=== PATIENT | male | born 1950 | race Caucasian/White ===

== ENCOUNTER 2024-09-08 20:42 | Inpatient (IN) | payer MEDICARE, OTHER ==
--- NOTE | 2024-09-08 20:46 | ED ---
SOB HPI - General Stated Complaint: Shortness of Breath Time Seen by Provider: 09/08/24 20:45 Source: RN notes reviewed, old records reviewed Mode of arrival: EMS Limitations: no limitations - History of Present Illness Initial Comments: This is a 73-year-old male to the ER for evaluation patient coming in for hemoptysis transfer from outside facility for hemoptysis with CHF. Patient admits to coughing up blood he was also concern for vomiting both but also complaining of some shortness of breath and chest pain. Patient symptoms are improved here in the ER no current hemoptysis MD Complaint: shortness of breath, cough, chest pain -: hour(s) Severity: mild Severity scale (1-10): 2 Consistency: constant Improves With: nothing Known History Of: COPD, congestive heart failure Context: recent URI, anxiety, recent illness Associated Symptoms: denies other symptoms - Related Data Home Medications Medication Instructions Recorded Confirmed Albuterol Sulfate [Albuterol 2 puff INHALATION RT-Q4H PRN 09/09/24 09/09/24 Sulfate Hfa] Atorvastatin [Lipitor] 40 mg PO HS 09/09/24 09/09/24 Cholecalciferol (Vitamin D3) 100 mcg PO DAILY 09/09/24 09/09/24 [Vitamin D3 (50 Mcg = 2000 Iu)] Clopidogrel [Plavix] 75 mg PO DAILY 09/09/24 09/09/24 Ferrous Gluconate 324 mg PO BID 09/09/24 09/09/24 Furosemide [Lasix] 20 mg PO DAILY 09/09/24 09/09/24 Ipratropium-Albuterol Nebulize 3 ml INHALATION RT-BID 09/09/24 09/09/24 [Duoneb 0.5 mg-3 mg/3 ml Soln] Isosorbide Mononitrate ER [Imdur] 30 mg PO DAILY 09/09/24 09/09/24 Levothyroxine Sodium [Synthroid] 25 mcg PO AC-BRKFST 09/09/24 09/09/24 Meclizine [Antivert] 25 mg PO BID PRN 09/09/24 09/09/24 Melatonin 6 mg PO HS 09/09/24 09/09/24 Metoprolol Succinate (ER) [Toprol 25 mg PO HS 09/09/24 09/09/24 XL] Montelukast [Singulair] 10 mg PO HS 09/09/24 09/09/24 Multivitamins, Thera [Multivitamin 1 tab PO DAILY 09/09/24 09/09/24 (formulary)] Pantoprazole [Protonix] 40 mg PO DAILY 09/09/24 09/09/24 Potassium Chloride ER [K-Dur 10] 10 meq PO DAILY 09/09/24 09/09/24 Warfarin [Coumadin] 7.5 mg PO HS 09/09/24 09/09/24 glipiZIDE XL [Glucotrol XL] 5 mg PO DAILY 09/09/24 09/09/24 metFORMIN HCL [Glucophage] 1,000 mg PO BID 09/09/24 09/09/24 Previous Rx's Medication Instructions Recorded Benzonatate [Tessalon Perles] 200 mg PO TID PRN 5 Days #15 cap 09/12/24 Magnesium Oxide [Mag-Ox] 400 mg PO TID 30 Days #30 09/12/24 bisacodyL [Dulcolax] 10 mg RECTAL DAILY PRN #5 09/12/24 suppositor cefuroxime axetiL [Ceftin] 500 mg PO BID 7 Days #14 tab 09/12/24 Allergies Allergy/AdvReac Type Severity Reaction Status Date / Time Penicillins Allergy Rash/Hives Verified 09/09/24 09:03 Review of Systems ROS Statement: Those systems with pertinent positive or pertinent negative responses have been documented in the HPI. ROS Other: All systems not noted in ROS Statement are negative. General Exam General appearance: alert, in no apparent distress Head exam: Present: atraumatic, normocephalic, normal inspection Eye exam: Present: normal appearance, PERRL, EOMI. Absent: scleral icterus, conjunctival injection, periorbital swelling ENT exam: Present: normal exam, mucous membranes moist Neck exam: Present: normal inspection. Absent: tenderness, meningismus, lymphadenopathy Respiratory exam: Present: wheezes. Absent: respiratory distress, rales, rhonchi, stridor Cardiovascular Exam: Present: regular rate, normal rhythm, normal heart sounds. Absent: systolic murmur, diastolic murmur, rubs, gallop, clicks GI/Abdominal exam: Present: soft, normal bowel sounds. Absent: distended, tenderness, guarding, rebound, rigid Extremities exam: Present: normal inspection, full ROM, normal capillary refill. Absent: tenderness, pedal edema, joint swelling, calf tenderness Back exam: Present: normal inspection Neurological exam: Present: alert, oriented X3, CN II-XII intact Psychiatric exam: Present: normal affect, normal mood Skin exam: Present: warm, dry, intact, normal color. Absent: rash Course Vital Signs 09/08/24 09/08/24 09/08/24 20:46 21:20 21:40 Temperature 99.9 F H Pulse Rate 101 H 98 98 Respiratory 24 19 Rate Blood Pressure 145/78 139/76 O2 Sat by Pulse 95 94 L Oximetry 09/08/24 09/08/24 09/09/24 21:46 23:00 03:00 Temperature 98.3 F Pulse Rate 84 90 91 Respiratory 17 18 Rate Blood Pressure 114/63 117/79 O2 Sat by Pulse 98 96 Oximetry 09/09/24 09/09/24 09/09/24 06:00 08:13 08:23 Temperature Pulse Rate 89 94 92 Respiratory 18 Rate Blood Pressure 133/78 O2 Sat by Pulse 96 94 L Oximetry 09/09/24 09/09/24 09/09/24 11:52 12:03 12:05 Temperature Pulse Rate 86 80 89 Respiratory 18 Rate Blood Pressure 121/69 O2 Sat by Pulse 97 Oximetry 09/09/24 09/09/24 09/09/24 15:20 15:26 15:38 Temperature Pulse Rate 86 88 90 Respiratory 18 Rate Blood Pressure 134/70 O2 Sat by Pulse 100 Oximetry 09/09/24 09/09/24 09/09/24 18:29 19:32 19:51 Temperature 97.8 F Pulse Rate 91 96 83 Respiratory 18 18 Rate Blood Pressure 136/75 138/71 O2 Sat by Pulse 100 97 Oximetry 09/09/24 09/09/24 09/10/24 20:03 22:00 06:00 Temperature Pulse Rate 85 84 91 Respiratory 18 18 Rate Blood Pressure 110/64 124/70 O2 Sat by Pulse 98 97 Oximetry 09/10/24 09/10/24 09/10/24 08:49 09:00 11:37 Temperature Pulse Rate 90 90 85 Respiratory 16 16 16 Rate Blood Pressure 106/62 O2 Sat by Pulse 99 96 Oximetry 09/10/24 09/10/24 09/10/24 12:00 13:05 17:02 Temperature Pulse Rate 88 94 95 Respiratory 18 18 20 Rate Blood Pressure 114/64 110/61 100/66 O2 Sat by Pulse 95 97 95 Oximetry 09/10/24 09/10/24 09/10/24 18:00 19:59 20:08 Temperature Pulse Rate 90 105 H 99 Respiratory 20 20 20 Rate Blood Pressure 101/60 O2 Sat by Pulse 97 Oximetry 09/10/24 20:45 Temperature Pulse Rate 105 H Respiratory 20 Rate Blood Pressure 119/76 O2 Sat by Pulse 97 Oximetry - Reevaluation(s) Reevaluation #1: 09/08/24 22:51 Medical records reviewed Reevaluation #2: 09/08/24 22:51 Patient is relatively asymptomatic here in the ER mild headache Reevaluation #3: 09/08/24 22:52 Patient informed of results questions answered Reevaluation #4: Was pt. sent in by a medical professional or institution (, PA, OFFICE SERVICES ASSOCIATE, urgent care, hospital, or [facility]...) When possible be specific @ -no Did you speak to anyone other than the patient for history (EMS, parent, family, police, friend...)? What history was obtained from this source @ -no Did you review nursing and triage notes (agree or disagree)? Why? @ -agree Are old charts reviewed (outside hosp., previous admission, EMS record, old EKG, old radiological studies, urgent care reports/EKG's, [facility] records)? Report findings @ -yes Differential Diagnosis (chest pain, altered mental status, abdominal pain women, abdominal pain men, vaginal bleeding, weakness, fever, dyspnea, syncope, headache, dizziness, GI bleed, back pain, seizure, CVA, palpatations, mental health, musculoskeletal)? @ -prior EKG interpreted by me (3pts min.). @ -yes X-rays interpreted by me (1pt min.). @ -yes negative for acute disease CT interpreted by me (1pt min.). @ -no U/S interpreted by me (1pt. min.). @ -no What testing was considered but not performed or refused? (CT, X-rays, U/S, labs)? Why? @ -none What meds were considered but not given or refused? Why? @ -none Did you discuss the management of the patient with other professionals (professionals i.e. , PA, OFFICE SERVICES ASSOCIATE, lab, RT, psych nurse, socially responsible investment adviser, yard brakeman, teacher, grant officer, vocational case manager)? Give summary @ -no Was smoking cessation discussed for >3mins.? @ -no Was critical care preformed (if so, how long)? @ -no Were there social determinants of health that impacted care today? How? (Homelessness, low income, unemployed, alcoholism, drug addiction, transportation, low edu. Level, literacy, decrease access to med. care, [facility], rehab)? @ -none Was there de-escalation of care discussed even if they declined (Discuss DNR or withdrawal of care, Hospice)? DNR status @ -no What co-morbidities impacted this encounter? (DM, HTN, Smoking, COPD, CAD, Cancer, CVA, ARF, Chemo, Hep., AIDS, mental health diagnosis, sleep apnea, morbid obesity)? @ -none Was patient admitted / discharged? Hospital course, mention meds given and route, prescriptions, significant lab abnormalities, going to OR and other pertinent info. @ - 73 male will be admitted for cough hemoptysis COPD and CHF with pneumonia Admitted Undiagnosed new problem with uncertain prognosis? @ -no Drug Therapy requiring intensive monitoring for toxicity (Heparin, Nitro, Insulin, Cardizem)? @ -no Were any procedures done? @ -no Diagnosis/symptom? @ -COPD CHF pneumonia Acute, or Chronic, or Acute on Chronic? @ -Acute Uncomplicated (without systemic symptoms) or Complicated (systemic symptoms)? @ -Complicated Side effects of treatment? @ -no Exacerbation, Progression, or Severe Exacerbation? @ -exacerbation Poses a threat to life or bodily function? How? (Chest pain, [place], [place], pneumonia, PE, COPD, DKA, ARF, appy, cholecystitis, CVA, Diverticulitis, Homicidal, Suicidal, threat to staff... and all critical care pts) @ -yes extremes of age respiratory disease Reevaluation #5: Differential Dyspnea: Coronary syndrome, arrhythmia, tamponade, asthma, COPD, pulmonary embolism, pneumonia, pneumothorax, pulmonary effusion, anaphylaxis, diabetic ketoacidosis, flailed chest, pulmonary contusion, diaphragmatic rupture, anemia, neuromuscular, this is not meant to be an all-inclusive list. - Consultations Consultation #1: Spoke with [facility] who agrees to admit this patient Medical Decision Making - Medical Decision Making 73 male will be admitted for cough hemoptysis COPD and CHF with pneumonia - Lab Data Result diagrams: 09/12/24 04:04 09/12/24 04:04 Lab Results 09/08/24 09/08/24 09/08/24 Range/Units 21:00 21:00 21:00 WBC 7.97 (4.50-10.00) 10*3/uL RBC 3.60 L (4.40-5.60) 10*6/uL Hgb 10.7 L (13.0-17.0) g/dL Hct 32.8 L (39.6-50.0) % MCV 91.1 (80.0-97.0) fL MCH 29.7 (27.0-32.0) pg MCHC 32.6 (32.0-37.0) g/dL Plt Count 277 (140-440) 10*3/uL MPV 9.4 L (9.5-12.2) fL Immature Gran % (Auto) 0.4 % Neutrophils % 90.3 % Lymphocytes % 3.0 % Monocytes % 5.9 % Eosinophils % 0.0 % Basophils % 0.4 % Immature Gran # 0.03 (0.00-0.04) 10*3/uL Neutrophils # 7.20 (1.80-7.70) 10*3/uL Lymphocytes # 0.24 L (0.90-5.00) 10*3/uL Monocytes # 0.47 (0.20-1.00) 10*3/uL Eosinophils # 0.00 L (0.04-0.35) 10*3/uL Basophils # 0.03 (0.00-0.10) 10*3/uL PT 21.3 H (10.0-12.5) sec INR 2.1 H (<1.2) APTT 29.5 (22.0-30.0) sec Sodium 139 (137-145) mmol/L Potassium 3.8 (3.5-5.1) mmol/L Chloride 96 L (98-107) mmol/L Carbon Dioxide 32 H (22-30) mmol/L Anion Gap 11 mmol/L BUN 36 H (9-20) mg/dL Creatinine 0.68 (0.66-1.25) mg/dL Est GFR (CKD-EPI)AfAm >90 (>60 ml/min/1.73 sqM) Est GFR (CKD-EPI)NonAf >90 (>60 ml/min/1.73 sqM) Glucose 121 H (74-99) mg/dL Plasma Lactic Acid Srinivas (0.7-2.0) mmol/L Calcium 9.2 (8.4-10.2) mg/dL Magnesium 1.5 L (1.6-2.3) mg/dL Total Bilirubin 1.2 (0.2-1.3) mg/dL AST 36 (17-59) U/L ALT 30 (4-49) U/L Alkaline Phosphatase 55 (38-126) U/L Troponin I (0.000-0.034) ng/mL NT-Pro-B Natriuret Pep 2320 pg/mL Total Protein 7.0 (6.3-8.2) g/dL Albumin 4.0 (3.5-5.0) g/dL 09/08/24 09/08/24 Range/Units 21:00 21:00 WBC (4.50-10.00) 10*3/uL RBC (4.40-5.60) 10*6/uL Hgb (13.0-17.0) g/dL Hct (39.6-50.0) % MCV (80.0-97.0) fL MCH (27.0-32.0) pg MCHC (32.0-37.0) g/dL Plt Count (140-440) 10*3/uL MPV (9.5-12.2) fL Immature Gran % (Auto) % Neutrophils % % Lymphocytes % % Monocytes % % Eosinophils % % Basophils % % Immature Gran # (0.00-0.04) 10*3/uL Neutrophils # (1.80-7.70) 10*3/uL Lymphocytes # (0.90-5.00) 10*3/uL Monocytes # (0.20-1.00) 10*3/uL Eosinophils # (0.04-0.35) 10*3/uL Basophils # (0.00-0.10) 10*3/uL PT (10.0-12.5) sec INR (<1.2) APTT (22.0-30.0) sec Sodium (137-145) mmol/L Potassium (3.5-5.1) mmol/L Chloride (98-107) mmol/L Carbon Dioxide (22-30) mmol/L Anion Gap mmol/L BUN (9-20) mg/dL Creatinine (0.66-1.25) mg/dL Est GFR (CKD-EPI)AfAm (>60 ml/min/1.73 sqM) Est GFR (CKD-EPI)NonAf (>60 ml/min/1.73 sqM) Glucose (74-99) mg/dL Plasma Lactic Acid Srinivas 1.4 (0.7-2.0) mmol/L Calcium (8.4-10.2) mg/dL Magnesium (1.6-2.3) mg/dL Total Bilirubin (0.2-1.3) mg/dL AST (17-59) U/L ALT (4-49) U/L Alkaline Phosphatase (38-126) U/L Troponin I 0.026 (0.000-0.034) ng/mL NT-Pro-B Natriuret Pep pg/mL Total Protein (6.3-8.2) g/dL Albumin (3.5-5.0) g/dL - EKG Data -: EKG Interpreted by Me (EKG is sinus 98 IN 117 QRS 87 QTc 397) - Radiology Data Radiology results: report reviewed (Chest x-ray positive for effusion with pneumonia), image reviewed Disposition Clinical Impression: Acute exacerbation of chronic obstructive pulmonary disease, Community acquired pneumonia, Acute pulmonary edema, Congestive heart failure, Hemoptysis Disposition: ADMITTED IP TO THIS HOSP Condition: Serious Is patient prescribed a controlled substance at d/c from ED?: No Time of Disposition: 22:10
[2024-09-08 21:13] LABS: Basophils # (A) 0.03 10*3/uL (0.00-0.10); Basophils % (A) 0.4 %; Eosinophils # (A) 0.00 10*3/uL (0.04-0.35); Eosinophils % (A) 0.0 %; HCT 32.8 % (39.6-50.0); HGB 10.7 g/dL (13.0-17.0); Lymphocytes # (A) 0.24 10*3/uL (0.90-5.00); Lymphocytes % (A) 3.0 %; MCH 29.7 pg (27.0-32.0); MCHC 32.6 g/dL (32.0-37.0); MCV 91.1 fL (80.0-97.0); Monocytes # (A) 0.47 10*3/uL (0.20-1.00); Monocytes % (A) 5.9 %; Neutrophils # (A) 7.20 10*3/uL (1.80-7.70); Neutrophils % (A) 90.3 %; Platelet Count 277 10*3/uL (140-440); RBC 3.60 10*6/uL (4.40-5.60); RDW 14.8 % (11.5-14.5); WBC 7.97 10*3/uL (4.50-10.00)
[2024-09-08 21:21] LABS: INR 2.1 (<1.2); Partial Thromboplastin Time 29.5 sec (22.0-30.0); Prothrombin Time 21.3 sec (10.0-12.5)
[2024-09-08 21:23] LABS: ALT 30 U/L (4-49); AST 36 U/L (17-59); African American GFR (CKD) >90 (>60 ml/min/1.73 sqM); Albumin 4.0 g/dL (3.5-5.0); Alkaline Phosphatase 55 U/L (38-126); Anion Gap 11 mmol/L; Blood Urea Nitrogen 36 mg/dL (9-20); Calcium 9.2 mg/dL (8.4-10.2); Carbon Dioxide 32 mmol/L (22-30); Chloride 96 mmol/L (98-107); Glucose 121 mg/dL (74-99); Magnesium 1.5 mg/dL (1.6-2.3); Non-African American GFR(CKD) >90 (>60 ml/min/1.73 sqM); Potassium 3.8 mmol/L (3.5-5.1); Sodium 139 mmol/L (137-145); Total Protein 7.0 g/dL (6.3-8.2)
[2024-09-08 21:31] LABS: NT-Pro-B-Type Natriuretic Pept 2320 pg/mL
--- NOTE | 2024-09-08 21:34 | XR ---
EXAMINATION TYPE: XR chest 1V portable DATE OF EXAM: 09/08/2024 9:29 PM COMPARISON: 09/08/2024 CLINICAL INDICATION: Male, 73 years old with history of sob, TECHNIQUE: XR chest 1V portable views of the chest are obtained. FINDINGS: Demonstrated are scattered senescent parenchymal change. Basilar airspace consolidation right greater than left with basilar pleural effusions. The heart is stable. Hilar and mediastinal structures are within normal limits. Degenerative changes are seen of the dorsal spine. IMPRESSION: 1. Basilar airspace consolidation right greater than left with basilar pleural effusions. Correlate for pneumonia or aspiration pneumonia. [facility], , 09/08/2024 9:31 PM
[2024-09-08] MEDS: IPRATROPIUM-ALBUTEROL 3 ML NEB INHALATION STA (21:38)
[2024-09-08] MEDS ORDERED: PNEUMONIA PROTOCOL UTILIZED 1 EACH MISC PO PRN (22:07)
[2024-09-08] MEDS: MAGNESIUM OXIDE 400 MG TAB PO STA (22:21)
[2024-09-08] MEDS: MORPHINE SULFATE 4 MG/ML SYRINGE IVP STA (22:22)
[2024-09-08] MEDS: MAGNESIUM SULFATE-D5W PMX 1 GM in DEXTROSE/WATER 1 100ML.BAG IVPB SCH (22:26)
[2024-09-08] MEDS: AZITHROMYCIN 500 MG in SODIUM CHLORIDE 0.9% 250 ML IVPB STA (23:12)
[2024-09-09 00:06] LABS: RSV Not Detected (Not Detectd)
--- NOTE | 2024-09-09 05:17 | P.CNPUL ---
History of Present Illness Consult date: 09/09/24 Requesting physician: Adriel Wright Reason for consult: COPD Chief complaint: Vomiting and shortness of breath History of present illness: Patient is a 73-year-old male with past medical history significant for coronary artery disease with previous three-vessel CABG and subsequent PCI/stents, diabetes mellitus, hypertension, hyperlipidemia, hypothyroidism, atrial fibrillation anticoagulated on Coumadin. Additionally, reports history of throat abscess and prolonged stay on the mechanical ventilator with tracheostomy and PEG tube at [facility]. These were reversed approximately 1 year ago. Endorses ongoing issues with dysphagia and aspiration. Brought into the emergency department late last night by EMS. Workup including chest x-ray showing bibasilar dense consolidations right greater than left with basilar pleural effusions. Prior sternotomy wires noted. Labs including a CBC with a WBC count of 7.97, hemoglobin 10.7 g/dL, platelets 277. CMP: Sodium 139, potassium 3.8, chloride 96, serum bicarb 32, BUN 36, creatinine 0.68, glucose 121. Lactic 1.4. Troponin 0.026. NT proBNP 2320. Viral 4 Plex negative for influenza A/B, RSV, COVID. Patient currently being evaluated in the emergency department. He is on 6 L nasal cannula. Resting fairly comfortably in bed. Able to carry out full conversation. He states that his difficulty in breathing started after an episode of vomiting. He feels he may have aspirated. Subsequently, coughing and small amounts of hemoptysis mixed with sputum. Denies any fevers or chills while at home. Did have a mild temperature of 99.9 F on arrival. Denies any further episodes of nausea or vomiting. Denies any hematemesis. Denies any abdominal pain. States his last normal bowel movement was yesterday. Although, reports ongoing issues with constipation. Denies any diarrhea, melena, hematochezia. Denies any chest pain. Denies any lower extremity swelling. No prior echocardiogram available for review. He is empirically covered on antibiotics. Review of Systems REVIEW OF SYSTEMS: CONSTITUTIONAL: Denies any recent significant weight loss or weight gain. EYES: Denies change in vision. EARS, NOSE, MOUTH, THROAT: Denies headaches, denies sore throat. CARDIOVASCULAR: Denies chest pain, palpitations or syncopal episodes. RESPIRATORY: See HPI GASTROINTESTINAL: Denies change in appetite, abdominal pain, or diarrhea. Endorses self-limiting episode of nausea and vomiting. GENITOURINARY: Denies hematuria, denies infections. MUSKULOSKELETAL: Denies pain, denies swelling. INTEGUMENTARY: Denies rash, denies eczema. NEUROLOGICAL: Denies recent memory loss, no recent seizure activity. PSYCHIATRIC: Denies anxiety, denies depression. HEMATOLOGIC/LYMPHATIC: Denies anemia, denies enlarged lymph node Past Medical History Past Medical History: Atrial Fibrillation, Coronary Artery Disease (CAD), COPD, Diabetes Mellitus, GERD/Reflux, Hyperlipidemia, Hypertension, Pneumonia, Thyroid Disorder Additional Past Medical History / Comment(s): Dysphagia. Interstital pulmonary disease , pleural effusion History of Any Multi-Drug Resistant Organisms: None Reported Past Surgical History: Appendectomy, Cholecystectomy, Coronary Bypass/CABG, Heart Catheterization, Heart Catheterization With Stent Additional Past Surgical History / Comment(s): tracheostomy, throat abscess, PEG tube and removal. Past Psychological History: No Psychological Hx Reported Smoking Status: Former smoker Past Alcohol Use History: None Reported Past Drug Use History: Marijuana Medications and Allergies Allergies Allergy/AdvReac Type Severity Reaction Status Date / Time Penicillins Allergy Rash/Hives Verified 09/08/24 20:45 Physical Exam Vitals: Vital Signs Temp Pulse Resp BP Pulse Ox 09/09/24 03:00 98.3 F 91 18 117/79 96 09/08/24 23:00 90 17 114/63 98 09/08/24 21:46 84 09/08/24 21:40 98 09/08/24 21:20 98 19 139/76 94 L 09/08/24 20:46 99.9 F H 101 H 24 145/78 95 Intake and Output 09/08/24 09/08/24 09/09/24 14:59 22:59 06:59 Other: Weight 68.039 kg GENERAL EXAM: Alert, 73 old male, on 6 L/min nasal cannula, comfortable in no apparent distress. HEAD: Normocephalic and atraumatic EYES: Normal reaction of pupils, equal size. NOSE: Clear with pink turbinates. THROAT: No erythema or exudates. NECK: No masses, no JVD. Remote appearing tracheostomy scar CHEST: Remote appearing sternotomy incision, well-healed LUNGS: Equal air entry with bibasilar inspiratory rales. No wheezing or rhonchi. no conversational dyspnea or accessory muscle use. Clear sputum in the bedside basin with minimal amount of blood-tinged CVS: S1 and S2 normal with no audible murmur, regular rhythm. No extra heart sounds ABDOMEN: Nondistended, active bowel sounds, no organomegaly, no guarding or rigidity. SPINE: No scoliosis or deformity SKIN: No rashes CENTRAL NERVOUS SYSTEM: No focal deficits, tone is normal in all 4 extremities. EXTREMITIES: There is no peripheral edema, clubbing, or cyanosis. Peripheral pulses are intact. Results - Laboratory Findings CBC and BMP: 09/08/24 21:00 09/08/24 21:00 PT/INR, D-dimer PT 21.3 sec (10.0-12.5) H 09/08/24 21:00 INR 2.1 (<1.2) H 09/08/24 21:00 Abnormal lab findings: Abnormal Labs 09/08/24 09/08/24 09/08/24 21:00 21:00 21:00 RBC 3.60 L Hgb 10.7 L Hct 32.8 L MPV 9.4 L Lymphocytes # 0.24 L Eosinophils # 0.00 L PT 21.3 H INR 2.1 H Chloride 96 L Carbon Dioxide 32 H BUN 36 H Glucose 121 H Magnesium 1.5 L - Diagnostic Findings Chest x-ray: image reviewed Assessment and Plan Assessment: Suspect bilateral aspiration pneumonia Acute hypoxemic respiratory failure, currently on 6 L/min nasal cannula, secondary to above History of throat abscess History of tracheostomy and PEG tube, with reversal approximately 1 year ago Chronic ongoing dysphagia History of coronary artery disease with previous three-vessel CABG and subsequent PCI/stents Hypertension History of hyperlipidemia History of diabetes mellitus type 2 History of hypothyroidism History of paroxysmal atrial fibrillation, chronically anticoagulated on Coumadin. INR 2.1. Plan: Patient's medications, labs, chest x-ray reviewed Continue supplemental oxygen maintain oxygen saturation of 92% or greater Continue empiric antibiotics Aspiration precautions Obtain swallow evaluation Blood cultures pending Obtain sputum culture Restart home medications once updated and reviewed Cardiology also consulted We will continue to follow, additional recommendations forthcoming I have personally seen and examined the patient, performed the documentation and the assessment and plan as written. Number of minutes spent on the visit:20 This dictation was produced using [employer] dictation software please excuse grammatical errors Time with Patient: Greater than 30
--- NOTE | 2024-09-09 06:18 | XR ---
EXAMINATION TYPE: XR chest 2V DATE OF EXAM: 09/09/2024 6:11 AM COMPARISON: Chest radiographs from 09/08/2024 TECHNIQUE: XR chest 2V Frontal and lateral views of the chest. CLINICAL INDICATION:Male, 73 years old with history of pneumonia; FINDINGS: Lungs/Pleura: No pneumothorax. Small right pleural effusion with bibasilar patchy airspace opacities. Pulmonary vascularity: Unremarkable. Heart/mediastinum: Cardiomediastinal silhouette is prominent in size. Atherosclerotic calcifications are seen in the aorta. Left atrial appendage occlusion devices present. Musculoskeletal: No acute osseous pathology. Midline sternotomy wires are noted and stable. IMPRESSION: Overall stable examination with small right pleural effusion and bibasilar airspace opacities concern ing for pneumonia. [facility], , 09/09/2024 6:16 AM
[2024-09-09] MEDS: ALBUTEROL NEBULIZED 2.5 MG/3 ML INHALATION PRN (08:08)
[2024-09-09] MEDS ORDERED: ALBUTEROL HFA INHALER INHALATION PRN (09:41)
--- NOTE | 2024-09-09 09:42 | P.CRDCN ---
History of Present Illness Consult date: 09/09/24 Consult reason: chest pain History of present illness: This is a 73-year-old male with past medical history of coronary artery disease with previous CABG three-vessel and subsequent PCI, diabetes mellitus type 2, hypertension, hyperlipidemia, hypothyroidism, atrial fibrillation on Coumadin, history of throat abscess requiring mechanical ventilation and trach and PEG tube at [facility] 1 year ago. We have been asked to evaluate the patient for chest pain. Patient states that he came into the hospital because he was coughing up blood as well as aspiration. He has been seen and followed by pulmonary medicine. Patient currently denies chest pain. No lower extremity edema. Patient is asking for medication for anxiety which will be deferred to admitting team. Blood pressure 133/78, heart rate 89, pulse ox 96% on 6 L nasal cannula. Patient has been started on IV antibiotics, nebulizer treatments and magnesium replacement. Patient is seen today in the emergency center waiting for a bed on the cardiac stepdown unit. -EKG: Sinus rhythm with no acute ST-T wave changes. -Chest x-ray: Basilar airspace consolidation right greater than left with basilar pleural effusions. Correlate for pneumonia or aspiration pneumonia. #2 overall stable examination with small right pleural effusion and bibasilar airspace opacities concerning for pneumonia -Laboratory studies: WBC 7.9, hemoglobin 10.7, sodium 139, potassium 3.8, BUN 36 creatinine 0.68. Troponin 0.026, magnesium 1.5, proBNP 2320. Cepheid viral panel not detected. -Home cardiac medications: Atorvastatin 40 mg at bedtime, Plavix 75 mg daily, ferrous gluconate 324 mg twice daily, Lasix 20 mg daily, Imdur 30 mg daily, magnesium oxide 400 mg twice daily, Toprol XL 25 mg at bedtime, potassium chloride 10 mill equivalents daily, warfarin 7.5 mg at bedtime, also on levoth yroxine 25 mcg daily. - Review Of Systems: At the time of my exam: CONSTITUTIONAL: Denies fever or chills. HEENT: Denies blurred vision, vision changes, or eye pain. Denies hemoptysis CARDIOVASCULAR: Denies chest pain. Denies orthopnea. Denies PND. Denies palpitations RESPIRATORY: Denies shortness of breath. GASTROINTESTINAL: Denies abdominal pain. Denies nausea or vomiting. HEMATOLOGIC: Reports hemoptysis. GENITOURINARY: Denies any blood in urine. SKIN: Denies puritis. Denies rash. Physical examination: Gen: This is 73-year-old male in no acute distress VS: reviewed HEENT: Head is atraumatic, normocephalic. Pupils equal, round. Sclerae is anicteric. NECK: Supple. No JVD. LUNGS: Clear to auscultation. No wheezes or rhonchi. No intercostal retractions. HEART: Regular rate and rhythm. ABDOMEN: Soft No tenderness. EXTREMITIES: No pedal edema. No calf tenderness. NEUROLOGICAL: Patient is awake, alert and oriented x3. Assessment: Hemoptysis Acute hypoxic respiratory failure Pneumonia, aspiration Patient denies chest pain History of throat abscess Coronary artery disease with previous three-vessel CABG followed by PCI Hypertension Hyperlipidemia Diabetes mellitus type 2 Hypothyroidism Paroxysmal atrial fibrillation on Coumadin, currently in sinus rhythm Plan: Resume patient's home cardiac medications Cancel echocardiogram ordered Obtain echocardiogram report from [facility] performed about 2 weeks ago. No additional cardiac workup is planned Cardiology will sign off this case and follow on an as-needed basis. Please reconsult for any new concerns. Patient may follow-up in the office in one to 2 weeks. Thank you kindly for this consultation. Nurse practitioner note has been reviewed, I agree with documented findings and plan of care. Patient was seen and examined. Past Medical History Past Medical History: Atrial Fibrillation, Coronary Artery Disease (CAD), COPD, Diabetes Mellitus, GERD/Reflux, Hyperlipidemia, Hypertension, Pneumonia, Thyroid Disorder Additional Past Medical History / Comment(s): Dysphagia. Interstital pulmonary disease , pleural effusion History of Any Multi-Drug Resistant Organisms: None Reported Past Surgical History: Appendectomy, Cholecystectomy, Coronary Bypass/CABG, Heart Catheterization, Heart Catheterization With Stent Additional Past Surgical History / Comment(s): tracheostomy, throat abscess, PEG tube and removal. Past Psychological History: No Psychological Hx Reported Smoking Status: Former smoker Past Alcohol Use History: None Reported Past Drug Use History: Marijuana Medications and Allergies Home Medications Medication Instructions Recorded Confirmed Type Albuterol Sulfate [Albuterol 2 puff INHALATION RT-Q4H PRN 09/09/24 09/09/24 History Sulfate Hfa] Atorvastatin [Lipitor] 40 mg PO HS 09/09/24 09/09/24 History Cholecalciferol (Vitamin D3) 100 mcg PO DAILY 09/09/24 09/09/24 History [Vitamin D3 (50 Mcg = 2000 Iu)] Clopidogrel [Plavix] 75 mg PO DAILY 09/09/24 09/09/24 History Ferrous Gluconate 324 mg PO BID 09/09/24 09/09/24 History Furosemide [Lasix] 20 mg PO DAILY 09/09/24 09/09/24 History Ipratropium-Albuterol Nebulize 3 ml INHALATION RT-BID 09/09/24 09/09/24 History [Duoneb 0.5 mg-3 mg/3 ml Soln] Isosorbide Mononitrate ER [Imdur] 30 mg PO DAILY 09/09/24 09/09/24 History Levothyroxine Sodium [Synthroid] 25 mcg PO AC-BRKFST 09/09/24 09/09/24 History Magnesium Oxide [Mag-Ox] 400 mg PO BID 09/09/24 09/09/24 History Meclizine [Antivert] 25 mg PO BID PRN 09/09/24 09/09/24 History Melatonin 6 mg PO HS 09/09/24 09/09/24 History Metoprolol Succinate (ER) [Toprol 25 mg PO HS 09/09/24 09/09/24 History Xl] Montelukast [Singulair] 10 mg PO HS 09/09/24 09/09/24 History Multivitamins, Thera [Multivitamin 1 tab PO DAILY 09/09/24 09/09/24 History (formulary)] Pantoprazole [Protonix] 40 mg PO DAILY 09/09/24 09/09/24 History Potassium Chloride ER [K-Dur 10] 10 meq PO DAILY 09/09/24 09/09/24 History Warfarin [Coumadin] 7.5 mg PO HS 09/09/24 09/09/24 History glipiZIDE XL [Glucotrol Xl] 5 mg PO DAILY 09/09/24 09/09/24 History metFORMIN HCL [Glucophage] 1,000 mg PO BID 09/09/24 09/09/24 History Allergies Allergy/AdvReac Type Severity Reaction Status Date / Time Penicillins Allergy Rash/Hives Verified 09/09/24 09:03 Physical Exam Vitals: Vital Signs Temp Pulse Resp BP Pulse Ox 09/09/24 08:23 92 09/09/24 08:13 94 94 L 09/09/24 06:00 89 18 133/78 96 09/09/24 03:00 98.3 F 91 18 117/79 96 09/08/24 23:00 90 17 114/63 98 09/08/24 21:46 84 09/08/24 21:40 98 09/08/24 21:20 98 19 139/76 94 L 09/08/24 20:46 99.9 F H 101 H 24 145/78 95 Intake and Output 09/08/24 09/09/24 09/09/24 22:59 06:59 14:59 Other: Weight 68.039 kg Results 09/10/24 06:33 09/10/24 06:33 Cardiac Enzymes 09/08/24 09/08/24 Range/Units 21:00 21:00 AST 36 (17-59) U/L Troponin I 0.026 (0.000-0.034) ng/mL Coagulation 09/08/24 Range/Units 21:00 PT 21.3 H (10.0-12.5) sec APTT 29.5 (22.0-30.0) sec CBC 09/08/24 Range/Units 21:00 WBC 7.97 (4.50-10.00) 10*3/uL RBC 3.60 L (4.40-5.60) 10*6/uL Hgb 10.7 L (13.0-17.0) g/dL Hct 32.8 L (39.6-50.0) % Plt Count 277 (140-440) 10*3/uL Comprehensive Metabolic Panel 09/08/24 Range/Units 21:00 Sodium 139 (137-145) mmol/L Potassium 3.8 (3.5-5.1) mmol/L Chloride 96 L (98-107) mmol/L Carbon Dioxide 32 H (22-30) mmol/L BUN 36 H (9-20) mg/dL Creatinine 0.68 (0.66-1.25) mg/dL Glucose 121 H (74-99) mg/dL Calcium 9.2 (8.4-10.2) mg/dL AST 36 (17-59) U/L ALT 30 (4-49) U/L Alkaline Phosphatase 55 (38-126) U/L Total Protein 7.0 (6.3-8.2) g/dL Albumin 4.0 (3.5-5.0) g/dL Current Medications Generic Name Dose Route Start Last Admin Trade Name Freq PRN Reason Stop Dose Admin Albuterol Sulfate 2.5 mg 09/08/24 22:07 09/09/24 08:08 Albuterol Nebulized 2.5 Mg/3 Ml INHALATION 2.5 mg RT-Q4H PRN Administration Shortness Of Breath Or Wheezing Ceftriaxone Sodium 2 gm/ 50 mls @ 100 mls/hr 09/09/24 22:00 Sodium Chloride IVPB 09/12/24 22:29 Q24H [facility] Protocol Azithromycin 500 mg/ Sodium 250 mls @ 250 mls/hr 09/09/24 21:00 Chloride IVPB 09/10/24 21:59 DAILY@2100 [facility] Protocol Melatonin 3 mg 09/09/24 21:00 Melatonin 3 Mg Tablet PO [facility] Miscellaneous Information 1 each 09/08/24 22:07 Pneumonia Protocol Utilized 1 Each Misc PO ONCE PRN Per Protocol Morphine Sulfate 4 mg 09/08/24 22:07 Morphine Sulfate 4 Mg/Ml Syringe IVP Q4HR PRN Pain Intake and Output 09/08/24 09/09/24 09/09/24 22:59 06:59 14:59 Other: Weight 68.039 kg 09/08/24 21:00 09/08/24 21:00
--- NOTE | 2024-09-09 11:23 | P.HPIM ---
History of Present Illness This is a pleasant 73 years old male from home with past medical history of multiple medical problems as below Dequan past medical history of multiple medical problems who was transferred from [facility] for shortness of breath and coughing up blood. Patient states that he has been short of breath for the last 2 days and is making some phlegm some of it is yellow and somewhat admixed with blood. He reports 2 throat procedures that happened about 2 years ago Patient complaining from chronic periumbilical central abdominal pain that improves with bowel movement. Patient states that his last bowel movement about 2 days ago which is unusual for him and he request also after. No vomiting currently. No change in appetite No dysuria urgency no chest pain currently complains from chronic dizziness but no headache or new weakness or numbness. Patient denies smoking alcohol or illicit drugs. He is having low-grade temperature of 99.9. He is currently on 62 oxygen via nasal cannula with saturating in the 90s. Hemoglobin 10.7 and INR 2.1. Other labs of CBC BMP LFTs and troponin were negative. Troponin 0.026. COVID influenza and RSV were undetected. proBNP is elevated 2320. Chest x-ray showing small right pleural effusion and bibasilar airspace opacity concerning for pneumonia Review of Systems Review of systems CONSTITUTIONAL: No fever, no malaise, no fatigue. HEENT: No recent visual problems or hearing problems. Denied any sore throat. CARDIOVASCULAR: No orthopnea, PND, no palpitations, no syncope. PULMONARY: No chest wall tenderness h, no hemoptysis. GASTROINTESTINAL: No diarrhea, no nausea, no vomiting, no abdominal pain. Normoactive bowel sounds. NEUROLOGICAL: No headaches, no weakness, no numbness. HEMATOLOGICAL: Denies any bleeding or petechiae. GENITOURINARY: Denies any burning micturition, frequency, or urgency. MUSCULOSKELETAL/RHEUMATOLOGICAL: Denies any joint pain, swelling, or any muscle pain. ENDOCRINE: Denies any polyuria or polydipsia. Past Medical History Past Medical History: Atrial Fibrillation, Coronary Artery Disease (CAD), COPD, Diabetes Mellitus, GERD/Reflux, Hyperlipidemia, Hypertension, Pneumonia, Thyroid Disorder Additional Past Medical History / Comment(s): Dysphagia. Interstital pulmonary disease , pleural effusion History of Any Multi-Drug Resistant Organisms: None Reported Past Surgical History: Appendectomy, Cholecystectomy, Coronary Bypass/CABG, Heart Catheterization, Heart Catheterization With Stent Additional Past Surgical History / Comment(s): tracheostomy, throat abscess, PEG tube and removal. Past Psychological History: No Psychological Hx Reported Smoking Status: Former smoker Past Alcohol Use History: None Reported Past Drug Use History: Marijuana Medications and Allergies Home Medications Medication Instructions Recorded Confirmed Type Albuterol Sulfate [Albuterol 2 puff INHALATION RT-Q4H PRN 09/09/24 09/09/24 History Sulfate Hfa] Atorvastatin [Lipitor] 40 mg PO HS 09/09/24 09/09/24 History Cholecalciferol (Vitamin D3) 100 mcg PO DAILY 09/09/24 09/09/24 History [Vitamin D3 (50 Mcg = 2000 Iu)] Clopidogrel [Plavix] 75 mg PO DAILY 09/09/24 09/09/24 History Ferrous Gluconate 324 mg PO BID 09/09/24 09/09/24 History Furosemide [Lasix] 20 mg PO DAILY 09/09/24 09/09/24 History Ipratropium-Albuterol Nebulize 3 ml INHALATION RT-BID 09/09/24 09/09/24 History [Duoneb 0.5 mg-3 mg/3 ml Soln] Isosorbide Mononitrate ER [Imdur] 30 mg PO DAILY 09/09/24 09/09/24 History Levothyroxine Sodium [Synthroid] 25 mcg PO AC-BRKFST 09/09/24 09/09/24 History Magnesium Oxide [Mag-Ox] 400 mg PO BID 09/09/24 09/09/24 History Meclizine [Antivert] 25 mg PO BID PRN 09/09/24 09/09/24 History Melatonin 6 mg PO HS 09/09/24 09/09/24 History Metoprolol Succinate (ER) [Toprol 25 mg PO HS 09/09/24 09/09/24 History Xl] Montelukast [Singulair] 10 mg PO HS 09/09/24 09/09/24 History Multivitamins, Thera [Multivitamin 1 tab PO DAILY 09/09/24 09/09/24 History (formulary)] Pantoprazole [Protonix] 40 mg PO DAILY 09/09/24 09/09/24 History Potassium Chloride ER [K-Dur 10] 10 meq PO DAILY 09/09/24 09/09/24 History Warfarin [Coumadin] 7.5 mg PO HS 09/09/24 09/09/24 History glipiZIDE XL [Glucotrol Xl] 5 mg PO DAILY 09/09/24 09/09/24 History metFORMIN HCL [Glucophage] 1,000 mg PO BID 09/09/24 09/09/24 History Allergies Allergy/AdvReac Type Severity Reaction Status Date / Time Penicillins Allergy Rash/Hives Verified 09/09/24 09:03 Physical Exam Vitals: Vital Signs Temp Pulse Resp BP Pulse Ox 09/09/24 08:23 92 09/09/24 08:13 94 94 L 09/09/24 06:00 89 18 133/78 96 09/09/24 03:00 98.3 F 91 18 117/79 96 09/08/24 23:00 90 17 114/63 98 09/08/24 21:46 84 09/08/24 21:40 98 09/08/24 21:20 98 19 139/76 94 L 09/08/24 20:46 99.9 F H 101 H 24 145/78 95 Intake and Output 09/08/24 09/09/24 09/09/24 22:59 06:59 14:59 Other: Weight 68.039 kg GENERAL: The patient is alert and oriented x3, not in any acute distress. Well developed, well nourished. HEENT: Pupils are round and equally reacting to light. EOMI. No scleral icterus. No conjunctival pallor. Normocephalic, atraumatic. No pharyngeal erythema. No thyromegaly. CARDIOVASCULAR: S1 and S2 present. No murmurs, rubs, or gallops. PULMONARY: Chest is clear to auscultation, no wheezing , no crackles. ABDOMEN: Soft, nontender, nondistended, normoactive bowel sounds. No palpable organomegaly. MUSCULOSKELETAL: No joint swelling or deformity. EXTREMITIES: No cyanosis, clubbing, or pedal edema. NEUROLOGICAL: Gross neurological examination did not reveal any focal deficits. SKIN: No rashes. no petechiae. Results CBC & Chem 7: 09/08/24 21:00 09/08/24 21:00 Labs: Abnormal Lab Results - Last 24 Hours (Table) 09/08/24 09/08/24 09/08/24 Range/Units 21:00 21:00 21:00 RBC 3.60 L (4.40-5.60) 10*6/uL Hgb 10.7 L (13.0-17.0) g/dL Hct 32.8 L (39.6-50.0) % MPV 9.4 L (9.5-12.2) fL Lymphocytes # 0.24 L (0.90-5.00) 10*3/uL Eosinophils # 0.00 L (0.04-0.35) 10*3/uL PT 21.3 H (10.0-12.5) sec INR 2.1 H (<1.2) Chloride 96 L (98-107) mmol/L Carbon Dioxide 32 H (22-30) mmol/L BUN 36 H (9-20) mg/dL Glucose 121 H (74-99) mg/dL Magnesium 1.5 L (1.6-2.3) mg/dL Assessment and Plan Assessment: Acute COPD exacerbation Bilateral basal pneumonia, community-acquired pneumonia Acute hypoxic respiratory failure Hemoptysis Small right pleural effusion Paroxysmal A-fib on warfarin at home Hypertension Hyperlipidemia Diabetes mellitus Hypothyroidism History of GERD Coronary artery disease status post stent Plan: Continue with Zithromax and ceftriaxone Follow-up culture result Continue with warfarin and INR Resume home medication Monitor glucose Cardiology and pulmonary team consult Bronchodilators and oxygen therapy Labs and medication were reviewed.. Continue same treatment. Continue with symptomatic treatment. Resume home medication. Monitor labs and vitals. DVT and GI prophylaxis. Further recommendations as per clinical course of the patient DVT prophylaxis: Warfarin GI Prophylaxis: Ppi PT/OT: Pending Prognosis is guarded
[2024-09-09 12:46] LABS: INR 1.9 (<1.2); Prothrombin Time 19.7 sec (10.0-12.5)
[2024-09-09] MEDS: WARFARIN 7.5 MG TAB PO ONE (18:34)
[2024-09-09 19:02] LABS: Glucose,Whole Blood 334 mg/dL (70-110)
[2024-09-09] MEDS: IPRATROPIUM-ALBUTEROL 3 ML NEB INHALATION SCH (19:48)
[2024-09-09] MEDS: ATORVASTATIN 40 MG TAB PO SCH (20:35)
[2024-09-09] MEDS: METOPROLOL SUCCINATE (ER) 25 MG TAB.ER.24H PO SCH (20:37)
[2024-09-09] MEDS: MAGNESIUM OXIDE 400 MG TAB PO SCH (20:38)
[2024-09-09] MEDS: FERROUS SULFATE 325 MG TAB PO SCH (20:38)
[2024-09-09] MEDS: MONTELUKAST 10 MG TAB PO SCH (20:38)
[2024-09-09] MEDS: MELATONIN 3 MG TABLET PO SCH (20:39)
[2024-09-09] MEDS: metFORMIN 500 MG TAB PO SCH (20:39)
[2024-09-09] MEDS: AZITHROMYCIN 500 MG in SODIUM CHLORIDE 0.9% 250 ML IVPB SCH (20:40)
[2024-09-09] MEDS ORDERED: MELATONIN 3 MG TABLET PO SCH (21:00)
[2024-09-09] MEDS: MORPHINE SULFATE 4 MG/ML SYRINGE IVP PRN (21:55)
[2024-09-10] MEDS: glipiZIDE 5 MG TAB PO SCH (06:50)
[2024-09-10] MEDS: LEVOTHYROXINE 25 MCG TAB PO SCH (06:50)
[2024-09-10 08:04] LABS: Glucose,Whole Blood 122 mg/dL (70-110)
[2024-09-10] MEDS: CLOPIDOGREL 75 MG TAB PO SCH (08:16)
[2024-09-10] MEDS: PANTOPRAZOLE 40 MG TABLET PO SCH (08:16)
[2024-09-10] MEDS: FUROSEMIDE 20 MG TAB PO SCH (08:16)
[2024-09-10] MEDS: ISOSORBIDE MONONITRATE ER 30 MG TAB.ER.24H PO SCH (08:16)
[2024-09-10] MEDS: MECLIZINE 25 MG TAB PO PRN (08:16)
[2024-09-10 08:24] LABS: INR 1.4 (<1.2); Prothrombin Time 15.2 sec (10.0-12.5)
--- NOTE | 2024-09-10 09:01 | P.PN ---
Subjective This is a pleasant 73 years old male from home with past medical history of multiple medical problems as below Dequan past medical history of multiple medical problems who was transferred from [facility] for shortness of breath and coughing up blood. Patient states that he has been short of breath for the last 2 days and is making some phlegm some of it is yellow and somewhat admixed with blood. He reports 2 throat procedures that happened about 2 years ago Patient complaining from chronic periumbilical central abdominal pain that improves with bowel movement. Patient states that his last bowel movement about 2 days ago which is unusual for him and he request also after. No vomiting currently. No change in appetite No dysuria urgency no chest pain currently complains from chronic dizziness but no headache or new weakness or numbness. Patient denies smoking alcohol or illicit drugs. He is having low-grade temperature of 99.9. He is currently on 62 oxygen via nasal cannula with saturating in the 90s. Hemoglobin 10.7 and INR 2.1. Other labs of CBC BMP LFTs and troponin were negative. Troponin 0.026. COVID influenza and RSV were undetected. proBNP is elevated 2320. Chest x-ray showing small right pleural effusion and bibasilar airspace opacity concerning for pneumonia 09/10 Patient states breathing is better He still coughing blood but no chest pain No other new complaints He is saturating 99% on 4 L oxygen via nasal cannula. He received Coumadin 7.5 mg yesterday his INR today is subtherapeutic at 1.4 Continue with Coumadin pharmacy to dose He is also on Plavix. He is asking if he can walk in the hallway. Will ask for PT/OT evaluate Review of systems CONSTITUTIONAL: No fever, no malaise, no fatigue. HEENT: No recent visual problems or hearing problems. Denied any sore throat. HEMATOLOGICAL: Denies any bleeding or petechiae. GENITOURINARY: Denies any burning micturition, frequency, or urgency. MUSCULOSKELETAL/RHEUMATOLOGICAL: Denies any joint pain, swelling, or any muscle pain. ENDOCRINE: Denies any polyuria or polydipsia. Active Medications Generic Name Dose Route Start Last Admin Trade Name Freq PRN Reason Stop Dose Admin Albuterol/Ipratropium 3 ml 09/09/24 20:00 09/10/24 08:48 Ipratropium-Albuterol 3 Ml Neb INHALATION 3 ml RT-BID ZEYAD Administration Atorvastatin Calcium 40 mg 09/09/24 21:00 09/09/24 20:35 Atorvastatin 40 Mg Tab PO 40 mg HS ZEYAD Administration Clopidogrel Bisulfate 75 mg 09/10/24 09:00 09/10/24 08:16 Clopidogrel 75 Mg Tab PO 75 mg DAILY ZEYAD Administration Ferrous Sulfate 325 mg 09/09/24 21:00 09/10/24 08:16 Ferrous Sulfate 325 Mg Tab PO 325 mg BID ZEYAD Administration Furosemide 20 mg 09/10/24 09:00 09/10/24 08:16 Furosemide 20 Mg Tab PO 20 mg DAILY ZEYAD Administration Glipizide 2.5 mg 09/10/24 07:30 09/10/24 06:50 Glipizide 5 Mg Tab PO 2.5 mg AC-BID ZEYAD Administration Ceftriaxone Sodium 2 gm/ 50 mls @ 100 mls/hr 09/09/24 22:00 09/10/24 00:14 Sodium Chloride IVPB 09/12/24 22:29 100 mls/hr Q24H ZEYAD Administration Protocol Azithromycin 500 mg/ Sodium 250 mls @ 250 mls/hr 09/09/24 21:00 09/09/24 20:40 Chloride IVPB 09/10/24 21:59 250 mls/hr DAILY@2100 ZEYAD Administration Protocol Isosorbide Mononitrate 30 mg 09/10/24 09:00 09/10/24 08:16 Isosorbide Mononitrate Er 30 Mg Tab.Er.24h PO 30 mg DAILY ZEYAD Administration Levothyroxine Sodium 25 mcg 09/10/24 06:30 09/10/24 06:50 Levothyroxine 25 Mcg Tab PO 25 mcg 0630 ZEYAD Administration Magnesium Oxide 400 mg 09/09/24 21:00 09/10/24 08:16 Magnesium Oxide 400 Mg Tab PO 400 mg BID ZEYAD Administration Meclizine HCl 25 mg 09/09/24 09:41 09/10/24 08:16 Meclizine 25 Mg Tab PO 25 mg BID PRN Administration Vertigo Melatonin 6 mg 09/09/24 21:00 09/09/24 20:39 Melatonin 3 Mg Tablet PO 6 mg HS ZEYAD Administration Metformin HCl 1,000 mg 09/09/24 21:00 09/10/24 08:16 Metformin 500 Mg Tab PO 1,000 mg BID ZEYAD Administration Metoprolol Succinate 25 mg 09/09/24 21:00 09/09/24 20:37 Metoprolol Succinate (Er) 25 Mg Tab.Er.24h PO 25 mg HS ZEYAD Administration Miscellaneous Information 1 each 09/08/24 22:07 Pneumonia Protocol Utilized 1 Each Misc PO ONCE PRN Per Protocol Miscellaneous Information 1 each 09/09/24 11:23 Warfarin Per Pharmacy MISCELLANE DIRECTED PRN Per Protocol Protocol Montelukast Sodium 10 mg 09/09/24 21:00 09/09/24 20:38 Montelukast 10 Mg Tab PO 10 mg HS ZEYAD Administration Morphine Sulfate 4 mg 09/08/24 22:07 09/09/24 21:55 Morphine Sulfate 4 Mg/Ml Syringe IVP 4 mg Q4HR PRN Administration Pain Pantoprazole Sodium 40 mg 09/10/24 09:00 09/10/24 08:16 Pantoprazole 40 Mg Tablet PO 40 mg DAILY ZEYAD Administration Objective - Vital Signs Vital signs: Vital Signs Temp 97.8 F 09/09/24 18:29 Pulse 90 09/10/24 08:49 Resp 16 09/10/24 08:49 BP 124/70 09/10/24 06:00 Pulse Ox 99 09/10/24 08:49 FiO2 - Exam GENERAL: The patient is alert and oriented x3, not in any acute distress. Well developed, well nourished. HEENT: Pupils are round and equally reacting to light. EOMI. No scleral icterus. No conjunctival pallor. Normocephalic, atraumatic. No pharyngeal erythema. No thyromegaly. CARDIOVASCULAR: S1 and S2 present. No murmurs, rubs, or gallops. PULMONARY: Chest is clear to auscultation, no wheezing , no crackles. ABDOMEN: Soft, nontender, nondistended, normoactive bowel sounds. No palpable organomegaly. MUSCULOSKELETAL: No joint swelling or deformity. EXTREMITIES: No cyanosis, clubbing, or pedal edema. NEUROLOGICAL: Gross neurological examination did not reveal any focal deficits. SKIN: No rashes. no petechiae. - Labs CBC & Chem 7: 09/08/24 21:00 09/08/24 21:00 Labs: Abnormal Lab Results - Last 24 Hours (Table) 09/09/24 09/09/24 09/10/24 Range/Units 11:41 18:59 06:33 PT 19.7 H 15.2 H (10.0-12.5) sec INR 1.9 H 1.4 H (<1.2) POC Glucose (mg/dL) 334 H (70-110) mg/dL 09/10/24 Range/Units 08:03 PT (10.0-12.5) sec INR (<1.2) POC Glucose (mg/dL) 122 H (70-110) mg/dL Microbiology - Last 24 Hours (Table) 09/09/24 08:26 Gram Stain - Preliminary Sputum Assessment and Plan Assessment: Bilateral basal pneumonia, community-acquired pneumonia Acute hypoxic respiratory failure Hemoptysis Small right pleural effusion COPD Paroxysmal A-fib on warfarin at home Hypertension Hyperlipidemia Diabetes mellitus Hypothyroidism History of GERD Coronary artery disease status post stent Plan: Continue with Zithromax and ceftriaxone Follow-up culture result Continue with warfarin and INR Resume home medication Monitor glucose Cardiology and pulmonary team consult Bronchodilators and oxygen therapy Labs and medication were reviewed.. Continue same treatment. Continue with symptomatic treatment. Resume home medication. Monitor labs and vitals. DVT and GI prophylaxis. Further recommendations as per clinical course of the patient DVT prophylaxis: Warfarin GI Prophylaxis: Ppi PT/OT: Pending Prognosis is guarded
[2024-09-10 10:10] LABS: HCT 32.6 % (39.6-50.0); HGB 9.9 g/dL (13.0-17.0); MCH 28.5 pg (27.0-32.0); MCHC 30.4 g/dL (32.0-37.0); MCV 93.9 FL (80.0-97.0); NRBC Per 100 WBC 0 X 10*3/uL (0.00-0.01); Platelet Count 250 X 10*3/uL (140-440); RBC 3.47 X 10*6/uL (4.40-5.60); RDW 15.1 % (11.5-14.5); WBC 6.22 X 10*3/uL (4.50-10.00)
[2024-09-10 10:23] LABS: Anion Gap 10.10 mmol/L (4.00-12.00); BUN/Creat Ratio 30.50 Ratio (12.00-20.00); Blood Urea Nitrogen 24.4 mg/dL (9.0-27.0); Calcium 8.9 mg/dL (8.7-10.3); Carbon Dioxide 29.9 mmol/L (21.6-31.8); Chloride 98 mmol/L (96-109); Glucose 141 mg/dL (70-110); Potassium 4.2 mmol/L (3.5-5.5); Sodium 138 mmol/L (135-145)
[2024-09-10 11:41] LABS: Basophils # (A) 0.03 X 10*3/uL (0.00-0.10); Basophils % (A) 0.5 %; Eosinophils # (A) 0.05 X 10*3/uL (0.04-0.35); Eosinophils % (A) 0.8 %; Immature Grans, Automated 0.30 %; Lymphocytes # (A) 0.34 X 10*3/uL (0.90-5.00); Lymphocytes % (A) 5.5 %; Monocytes # (A) 0.61 X 10*3/uL (0.20-1.00); Monocytes % (A) 9.8 %; Neutrophils # (A) 5.17 X 10*3/uL (1.80-7.70); Neutrophils % (A) 83.1 %
--- NOTE | 2024-09-10 12:30 | P.PN ---
Subjective Progress Note Date: 09/10/24 Patient is a 73-year-old male with past medical history significant for coronary artery disease with previous three-vessel CABG and subsequent PCI/stents, diabetes mellitus, hypertension, hyperlipidemia, hypothyroidism, atrial fibrillation anticoagulated on Coumadin. Additionally, reports history of throat abscess and prolonged stay on the mechanical ventilator with tracheostomy and PEG tube at [facility]. These were reversed approximately 1 year ago. Endorses ongoing issues with dysphagia and aspiration. Brought into the emergency department late last night by EMS. Workup including chest x-ray showing bibasilar dense consolidations right greater than left with basilar pleural effusions. Prior sternotomy wires noted. Labs including a CBC with a WBC count of 7.97, hemoglobin 10.7 g/dL, platelets 277. CMP: Sodium 139, potassium 3.8, chloride 96, serum bicarb 32, BUN 36, creatinine 0.68, glucose 121. Lactic 1.4. Troponin 0.026. NT proBNP 2320. Viral 4 Plex negative for influenza A/B, RSV, COVID. Patient currently being evaluated in the emergency department. He is on 6 L nasal cannula. Resting fairly comfortably in bed. Able to carry out full conversation. He states that his difficulty in breathing started after an episode of vomiting. He feels he may have aspirated. Subsequently, coughing and small amounts of hemoptysis mixed with sputum. Denies any fevers or chills while at home. Did have a mild temperature of 99.9 F on arrival. Denies any further episodes of nausea or vomiting. Denies any hematemesis. Denies any abdominal pain. States his last normal bowel movement was yesterday. Although, reports ongoing issues with constipation. Denies any diarrhea, melena, hematochezia. Denies any chest pain. Denies any lower extremity swelling. No prior echocardiogram available for review. He is empirically covered on antibiotics. The patient is seen today September 10, 2024 in follow-up in the emergency department. He is currently sitting up in a stretcher. Awake and alert in no acute distress. Breathing a bit easier today compared to yesterday. Maintaining O2 saturations in the 90s on 4 L/min per nasal cannula. No IV fluids. Follow-up chest x-ray revealed stable exam with small right pleural effusion and bibasilar airspace opacities. He remains on ceftriaxone and azithromycin. Sputum culture pending. White count 6.2. Hemoglobin 9.9. Platelets 250. INR 1.4. Sodium 138. Potassium 4.2. Bicarb 30. BUN 24. Creatinine 0.8. Glucose 141. He is continued on DuoNeb inhalations and Singulair. Remains on oral diuretics. Anticoagulated with warfarin. Objective - Vital Signs Vital signs: Vital Signs Temp 97.8 F 09/09/24 18:29 Pulse 88 09/10/24 12:00 Resp 18 09/10/24 12:00 BP 114/64 09/10/24 12:00 Pulse Ox 95 09/10/24 12:00 FiO2 - Exam GENERAL EXAM: Alert, active, 73-year-old male, on 4 L nasal cannula, fairly comfortable in no apparent distress. HEAD: Normocephalic. EYES: Normal reaction of pupils, equal size. NOSE: Clear with pink turbinates. THROAT: No erythema or exudates. NECK: No masses, no JVD. CHEST: No chest wall deformity. LUNGS: Equal air entry with bilateral scattered rhonchi. CVS: S1 and S2 normal with no audible murmur, regular rhythm. ABDOMEN: No hepatosplenomegaly, normal bowel sounds, no guarding or rigidity. SPINE: No scoliosis or deformity SKIN: No rashes CENTRAL NERVOUS SYSTEM: No focal deficits, tone is normal in all 4 extremities. EXTREMITIES: There is no peripheral edema. No clubbing, no cyanosis. Peripheral pulses are intact. - Labs CBC & Chem 7: 09/10/24 06:33 09/10/24 06:33 Labs: Abnormal Lab Results - Last 24 Hours (Table) 09/09/24 09/09/24 09/10/24 Range/Units 11:41 18:59 06:33 RBC (4.40-5.60) X 10*6/uL Hgb (13.0-17.0) g/dL Hct (39.6-50.0) % MCHC (32.0-37.0) g/dL RDW (11.5-14.5) % Lymphocytes # (0.90-5.00) X 10*3/uL Elliptocytes (None Seen) PT 19.7 H 15.2 H (10.0-12.5) sec INR 1.9 H 1.4 H (<1.2) BUN/Creatinine Ratio (12.00-20.00) Ratio Glucose (70-110) mg/dL POC Glucose (mg/dL) 334 H (70-110) mg/dL 09/10/24 09/10/24 09/10/24 Range/Units 06:33 06:33 08:03 RBC 3.47 L (4.40-5.60) X 10*6/uL Hgb 9.9 L (13.0-17.0) g/dL Hct 32.6 L (39.6-50.0) % MCHC 30.4 L (32.0-37.0) g/dL RDW 15.1 H (11.5-14.5) % Lymphocytes # 0.34 L (0.90-5.00) X 10*3/uL Elliptocytes 2+ A (None Seen) PT (10.0-12.5) sec INR (<1.2) BUN/Creatinine Ratio 30.50 H (12.00-20.00) Ratio Glucose 141 H (70-110) mg/dL POC Glucose (mg/dL) 122 H (70-110) mg/dL Microbiology - Last 24 Hours (Table) 09/09/24 08:26 Gram Stain - Preliminary Sputum Assessment and Plan Assessment: Suspect bilateral aspiration pneumonia Acute hypoxemic respiratory failure, currently on 4 L/min nasal cannula, secondary to above History of throat abscess History of tracheostomy and PEG tube, with reversal approximately 1 year ago Chronic ongoing dysphagia History of coronary artery disease with previous three-vessel CABG and subsequent PCI/stents Hypertension History of hyperlipidemia History of diabetes mellitus type 2 History of hypothyroidism History of paroxysmal atrial fibrillation, chronically anticoagulated on Coumadin Plan: The patient was seen and evaluated Chest x-ray, labs and medications reviewed Sputum culture pending Stable on 4 L nasal cannula Continue ceftriaxone and azithromycin Continue DuoNeb ventilations Continue Singulair Anticoagulated with warfarin Remains on diuretics Titrate down the FiO2 as tolerated Increase his activity as tolerated This patient was seen independently by the pulmonary nurse practitioner addressing pulmonary issues I have personally seen and examined the patient, performed the documentation and the assessment and plan as written. Number of minutes spent on the visit: 25 Dictation was produced using [employer] dictation software. Please excuse any grammatical, word or spelling errors.
--- NOTE | 2024-09-10 15:15 | CDI ---
Documentation Clarification Form Date: 09/10/2024 02:26:00 PM From: Yarelis Torres RN, CCDS Phone: [phone] Admit Date: 09/08/2024 10:07:00 PM Patient Name: Josh Segovia Visit Number: [id number] Discharge Date: ATTENTION: The Clinical Documentation Specialists (CDI) and [facility] Coding Staff appreciate your assistance in clarifying documentation. Please respond to the clarification below the line at the bottom and electronically sign. The CDI & [facility] Coding staff will review the response and follow-up if needed. Please note: Queries are made part of the Legal Health Record. If you have any questions, please contact the author of this message via ITS. Doctor. Behzad Sheet Conflicting documentation has been found in the medical record. As attending physician, please provide clarification. 09/09 Medicine H/P subsequent progress notes: Bilateral basal pneumonia, community-acquired pneumonia 09/09 Pulmonary consult and subsequent progress notes: Suspect bilateral aspiration pneumonia History/Risk Factors: Tracheostomy and PEG tube with reversal 1 year age, chronic ongoing dysphagia, Aspiration, COPD, Clinical Indicators: 73-year-old male with coughing up blood was also vomiting and complaining of some shortness of breath and chest pain. 09/08 VS: 145/78 101 24 99.9 95% 6/L NC 09/08 Labs: WBC 7.97 CL 96, CO2 32, BNP 2330 09/08 CXR: Basilar airspace consolidation right greater than left with basilar pleural effusions. Correlate for aspiration pneumonia. 09/08 CXR: Overall stable examination with small right pleural effusion and bibasilar airspace opacities concerning for pneumonia. Treatment: Aspiration Precaution (continuous) Rocephin 2 GM IVPB Q 24 HRS 09/08-09/10 Azithromycin 500MG IVPB 09/08-09/09 Duoneb Inhalation 0.5 Mg-3 Mg/3Ml Jennyfer RT-BID Please clarify which diagnosis is most appropriate: [ x ] Bilateral basal pneumonia, community-acquired pneumonia [ ] Bilateral aspiration pneumonia [ ] Other (please specify) [ ] Unable to determine (Template Last Revised: May 2020) MTDD
[2024-09-10] MEDS: guaiFENesin SYRUP 100MG/5ML 200 MG/10 ML CUP PO PRN (16:56)
[2024-09-10] MEDS: WARFARIN 7.5 MG TAB PO ONE (17:01)
[2024-09-11 06:08] LABS: Glucose,Whole Blood 85 mg/dL (70-110)
[2024-09-11 08:13] LABS: Anion Gap 8.80 mmol/L (4.00-12.00); BUN/Creat Ratio 33.25 Ratio (12.00-20.00); Blood Urea Nitrogen 26.6 mg/dL (9.0-27.0); Calcium 8.3 mg/dL (8.7-10.3); Carbon Dioxide 30.2 mmol/L (21.6-31.8); Chloride 101 mmol/L (96-109); Glucose 71 mg/dL (70-110); Potassium 3.9 mmol/L (3.5-5.5); Sodium 140 mmol/L (135-145)
[2024-09-11 08:16] LABS: Basophils # (A) 0.02 X 10*3/uL (0.00-0.10); Basophils % (A) 0.4 %; Eosinophils # (A) 0.11 X 10*3/uL (0.04-0.35); Eosinophils % (A) 2.1 %; HCT 26.8 % (39.6-50.0); HGB 8.3 g/dL (13.0-17.0); Immature Grans, Automated 0.60 %; Lymphocytes # (A) 0.62 X 10*3/uL (0.90-5.00); Lymphocytes % (A) 11.9 %; MCH 29.3 pg (27.0-32.0); MCHC 31.0 g/dL (32.0-37.0); MCV 94.7 FL (80.0-97.0); Monocytes # (A) 0.58 X 10*3/uL (0.20-1.00); Monocytes % (A) 11.2 %; NRBC Per 100 WBC 0 X 10*3/uL (0.00-0.01); Neutrophils # (A) 3.84 X 10*3/uL (1.80-7.70); Neutrophils % (A) 73.8 %; Platelet Count 216 X 10*3/uL (140-440); RBC 2.83 X 10*6/uL (4.40-5.60); RDW 15.3 % (11.5-14.5); WBC 5.20 X 10*3/uL (4.50-10.00)
[2024-09-11 11:20] LABS: Glucose,Whole Blood 112 mg/dL (70-110)
[2024-09-11 12:20] LABS: INR 1.83 sec (0.93-1.11); Prothrombin Time 19.6 sec (9.9-11.9)
--- NOTE | 2024-09-11 14:06 | P.PN ---
Subjective Progress Note Date: 09/11/24 Patient is a 73-year-old male with past medical history significant for coronary artery disease with previous three-vessel CABG and subsequent PCI/stents, diabetes mellitus, hypertension, hyperlipidemia, hypothyroidism, atrial fibrillation anticoagulated on Coumadin. Additionally, reports history of throat abscess and prolonged stay on the mechanical ventilator with tracheostomy and PEG tube at [facility]. These were reversed approximately 1 year ago. Endorses ongoing issues with dysphagia and aspiration. Brought into the emergency department late last night by EMS. Workup including chest x-ray showing bibasilar dense consolidations right greater than left with basilar pleural effusions. Prior sternotomy wires noted. Labs including a CBC with a WBC count of 7.97, hemoglobin 10.7 g/dL, platelets 277. CMP: Sodium 139, potassium 3.8, chloride 96, serum bicarb 32, BUN 36, creatinine 0.68, glucose 121. Lactic 1.4. Troponin 0.026. NT proBNP 2320. Viral 4 Plex negative for influenza A/B, RSV, COVID. Patient currently being evaluated in the emergency department. He is on 6 L nasal cannula. Resting fairly comfortably in bed. Able to carry out full conversation. He states that his difficulty in breathing started after an episode of vomiting. He feels he may have aspirated. Subsequently, coughing and small amounts of hemoptysis mixed with sputum. Denies any fevers or chills while at home. Did have a mild temperature of 99.9 F on arrival. Denies any further episodes of nausea or vomiting. Denies any hematemesis. Denies any abdominal pain. States his last normal bowel movement was yesterday. Although, reports ongoing issues with constipation. Denies any diarrhea, melena, hematochezia. Denies any chest pain. Denies any lower extremity swelling. No prior echocardiogram available for review. He is empirically covered on antibiotics. The patient is seen today September 10, 2024 in follow-up in the emergency department. He is currently sitting up in a stretcher. Awake and alert in no acute distress. Breathing a bit easier today compared to yesterday. Maintaining O2 saturations in the 90s on 4 L/min per nasal cannula. No IV fluids. Follow-up chest x-ray revealed stable exam with small right pleural effusion and bibasilar airspace opacities. He remains on ceftriaxone and azithromycin. Sputum culture pending. White count 6.2. Hemoglobin 9.9. Platelets 250. INR 1.4. Sodium 138. Potassium 4.2. Bicarb 30. BUN 24. Creatinine 0.8. Glucose 141. He is continued on DuoNeb inhalations and Singulair. Remains on oral diuretics. Anticoagulated with warfarin. The patient is seen today September 11, 2024 in follow-up on the regular medical floor. He is currently sitting up at the bedside. Awake and alert in no acute distress. Maintaining O2 saturations in the 90s on 4 L/min per nasal cannula. No IV fluids. He continues with a productive cough of yellowish sputum with some trace of blood. Improving. Sputum culture revealed no growth. Blood culture revealed no growth. White count 5.2. Hemoglobin 8.3. Platelets 216. INR 1.83. Sodium 140. Potassium 3.9. Bicarb 30. BUN 27. Creatinine 0.8. Glucose 71. He remains on ceftriaxone. Completed azithromycin. Continued on DuoNeb and elations and Singulair. Robitussin for his cough. Remains on oral diuretics. Anticoagulated with warfarin. Objective - Vital Signs Vital signs: Vital Signs Temp 97.8 F 09/11/24 07:48 Pulse 99 09/11/24 08:24 Resp 17 09/11/24 07:48 BP 120/69 09/11/24 07:48 Pulse Ox 98 09/11/24 08:14 FiO2 Intake & Output 09/10/24 09/11/24 09/11/24 18:59 06:59 18:59 Output Total 400 Balance -400 Weight 68.039 kg Output: Urine 400 Other: Voiding Method External Catheter Toilet Urinal # Voids 1 - Exam GENERAL EXAM: Alert, 73-year-old male, on 4 L nasal cannula, and up at the bedside, comfortable in no apparent distress. HEAD: Normocephalic. EYES: Normal reaction of pupils, equal size. NOSE: Clear with pink turbinates. THROAT: No erythema or exudates. NECK: No masses, no JVD. CHEST: No chest wall deformity. LUNGS: Equal air entry with bilateral scattered rhonchi. CVS: S1 and S2 normal with no audible murmur, regular rhythm. ABDOMEN: No hepatosplenomegaly, normal bowel sounds, no guarding or rigidity. SPINE: No scoliosis or deformity SKIN: No rashes CENTRAL NERVOUS SYSTEM: No focal deficits, tone is normal in all 4 extremities. EXTREMITIES: There is no peripheral edema. No clubbing, no cyanosis. Peripheral pulses are intact. - Labs CBC & Chem 7: 09/11/24 03:28 09/11/24 03:28 Labs: Abnormal Lab Results - Last 24 Hours (Table) 09/11/24 09/11/24 09/11/24 Range/Units 03:28 03:28 03:28 RBC 2.83 L (4.40-5.60) X 10*6/uL Hgb 8.3 L (13.0-17.0) g/dL Hct 26.8 L (39.6-50.0) % MCHC 31.0 L (32.0-37.0) g/dL RDW 15.3 H (11.5-14.5) % Lymphocytes # 0.62 L (0.90-5.00) X 10*3/uL PT 19.6 H (9.9-11.9) sec INR 1.83 H (0.93-1.11) sec BUN/Creatinine Ratio 33.25 H (12.00-20.00) Ratio POC Glucose (mg/dL) (70-110) mg/dL Calcium 8.3 L (8.7-10.3) mg/dL 09/11/24 Range/Units 11:18 RBC (4.40-5.60) X 10*6/uL Hgb (13.0-17.0) g/dL Hct (39.6-50.0) % MCHC (32.0-37.0) g/dL RDW (11.5-14.5) % Lymphocytes # (0.90-5.00) X 10*3/uL PT (9.9-11.9) sec INR (0.93-1.11) sec BUN/Creatinine Ratio (12.00-20.00) Ratio POC Glucose (mg/dL) 112 H (70-110) mg/dL Calcium (8.7-10.3) mg/dL Microbiology - Last 24 Hours (Table) 09/09/24 08:26 Gram Stain - Final Sputum Sputum Culture - Final 09/09/24 18:51 Blood Culture - Preliminary Blood Assessment and Plan Assessment: Suspect bilateral aspiration pneumonia Acute hypoxemic respiratory failure, currently on 4 L/min nasal cannula, secondary to above History of throat abscess History of tracheostomy and PEG tube, with reversal approximately 1 year ago Chronic ongoing dysphagia History of coronary artery disease with previous three-vessel CABG and subsequent PCI/stents Hypertension History of hyperlipidemia History of diabetes mellitus type 2 History of hypothyroidism History of paroxysmal atrial fibrillation, chronically anticoagulated on Coumadin Plan: The patient was seen and evaluated Labs and medications reviewed Sputum culture revealed no growth Stable on 4 L nasal cannula Continue ceftriaxone Completed azithromycin Continue DuoNeb ventilations Continue Singulair Anticoagulated with warfarin Remains on diuretics Titrate down the FiO2 as tolerated Increase his activity as tolerated I have personally seen and examined the patient, performed the documentation and the assessment and plan as written. Number of minutes spent on the visit: 10 Dictation was produced using [employer] dictation software. Please excuse any grammatical, word or spelling errors.
[2024-09-11 16:41] LABS: Glucose,Whole Blood 105 mg/dL (70-110)
[2024-09-11] MEDS: WARFARIN 7.5 MG TAB PO ONE (17:13)
[2024-09-11 20:24] LABS: Glucose,Whole Blood 144 mg/dL (70-110)
--- NOTE | 2024-09-12 01:21 | P.PN ---
Subjective This is a pleasant 73 years old male from home with past medical history of multiple medical problems as below Dequan past medical history of multiple medical problems who was transferred from [facility] for shortness of breath and coughing up blood. Patient states that he has been short of breath for the last 2 days and is making some phlegm some of it is yellow and somewhat admixed with blood. He reports 2 throat procedures that happened about 2 years ago Patient complaining from chronic periumbilical central abdominal pain that improves with bowel movement. Patient states that his last bowel movement about 2 days ago which is unusual for him and he request also after. No vomiting currently. No change in appetite No dysuria urgency no chest pain currently complains from chronic dizziness but no headache or new weakness or numbness. Patient denies smoking alcohol or illicit drugs. He is having low-grade temperature of 99.9. He is currently on 62 oxygen via nasal cannula with saturating in the 90s. Hemoglobin 10.7 and INR 2.1. Other labs of CBC BMP LFTs and troponin were negative. Troponin 0.026. COVID influenza and RSV were undetected. proBNP is elevated 2320. Chest x-ray showing small right pleural effusion and bibasilar airspace opacity concerning for pneumonia 09/10 Patient states breathing is better He still coughing blood but no chest pain No other new complaints He is saturating 99% on 4 L oxygen via nasal cannula. He received Coumadin 7.5 mg yesterday his INR today is subtherapeutic at 1.4 Continue with Coumadin pharmacy to dose He is also on Plavix. He is asking if he can walk in the hallway. Will ask for PT/OT evaluate 09/11 Patient coughing is better No dyspnea or exertional dyspnea No significant chest pain Hemoglobin 8.3. INR 1.8 Getting 7.5 mg Getting antibiotic Sputum culture is negative. Check swallow barium study in the morning and chest x-ray per pulmonary team Active Medications Generic Name Dose Route Start Last Admin Trade Name Freq PRN Reason Stop Dose Admin Albuterol/Ipratropium 3 ml 09/09/24 20:00 09/11/24 21:13 Ipratropium-Albuterol 3 Ml Neb INHALATION 3 ml RT-BID ZEYAD Administration Atorvastatin Calcium 40 mg 09/09/24 21:00 09/11/24 21:07 Atorvastatin 40 Mg Tab PO 40 mg HS ZEYAD Administration Clopidogrel Bisulfate 75 mg 09/10/24 09:00 09/11/24 09:21 Clopidogrel 75 Mg Tab PO 75 mg DAILY ZEYAD Administration Ferrous Sulfate 325 mg 09/09/24 21:00 09/11/24 21:07 Ferrous Sulfate 325 Mg Tab PO 325 mg BID ZEYAD Administration Furosemide 20 mg 09/10/24 09:00 09/11/24 09:20 Furosemide 20 Mg Tab PO 20 mg DAILY ZEYAD Administration Glipizide 2.5 mg 09/10/24 07:30 09/11/24 17:13 Glipizide 5 Mg Tab PO 2.5 mg AC-BID ZEYAD Administration Guaifenesin 200 mg 09/10/24 16:47 09/11/24 21:05 Guaifenesin Syrup 100mg/5ml 200 Mg/10 Ml Cup PO 200 mg Q6HR PRN Administration Cough Ceftriaxone Sodium 2 gm/ 50 mls @ 100 mls/hr 09/09/24 22:00 09/11/24 21:07 Sodium Chloride IVPB 09/12/24 22:29 100 mls/hr Q24H ZEYAD Administration Protocol Isosorbide Mononitrate 30 mg 09/10/24 09:00 09/11/24 09:21 Isosorbide Mononitrate Er 30 Mg Tab.Er.24h PO 30 mg DAILY ZEYAD Administration Levothyroxine Sodium 25 mcg 09/10/24 06:30 09/11/24 06:29 Levothyroxine 25 Mcg Tab PO 25 mcg 0630 ZEYAD Administration Magnesium Oxide 400 mg 09/09/24 21:00 09/11/24 21:06 Magnesium Oxide 400 Mg Tab PO 400 mg BID ZEYAD Administration Meclizine HCl 25 mg 09/09/24 09:41 09/10/24 08:16 Meclizine 25 Mg Tab PO 25 mg BID PRN Administration Vertigo Melatonin 6 mg 09/09/24 21:00 09/11/24 21:07 Melatonin 3 Mg Tablet PO 6 mg HS ZEYAD Administration Metformin HCl 1,000 mg 09/09/24 21:00 09/11/24 21:06 Metformin 500 Mg Tab PO 1,000 mg BID ZEYAD Administration Metoprolol Succinate 25 mg 09/09/24 21:00 09/11/24 21:07 Metoprolol Succinate (Er) 25 Mg Tab.Er.24h PO 25 mg HS ZEYAD Administration Miscellaneous Information 1 each 09/08/24 22:07 Pneumonia Protocol Utilized 1 Each Misc PO ONCE PRN Per Protocol Miscellaneous Information 1 each 09/09/24 11:23 Warfarin Per Pharmacy MISCELLANE DIRECTED PRN Per Protocol Protocol Montelukast Sodium 10 mg 09/09/24 21:00 09/11/24 21:07 Montelukast 10 Mg Tab PO 10 mg HS ZEAYD Administration Morphine Sulfate 4 mg 09/08/24 22:07 09/11/24 21:05 Morphine Sulfate 4 Mg/Ml Syringe IVP 4 mg Q4HR PRN Administration Pain Pantoprazole Sodium 40 mg 09/10/24 09:00 09/11/24 09:21 Pantoprazole 40 Mg Tablet PO 40 mg DAILY ZEYAD Administration Objective - Vital Signs Vital signs: Vital Signs Temp 97.9 F 09/11/24 14:00 Pulse 83 09/11/24 14:00 Resp 17 09/11/24 14:00 BP 111/70 09/11/24 14:00 Pulse Ox 97 09/11/24 14:00 FiO2 Intake & Output 09/10/24 09/11/24 09/11/24 18:59 06:59 18:59 Output Total 400 Balance -400 Weight 68.039 kg Output: Urine 400 Other: Voiding Method External Catheter Toilet Urinal # Voids 1 - Exam GENERAL: The patient is alert and oriented x3, not in any acute distress. Well developed, well nourished. HEENT: Pupils are round and equally reacting to light. EOMI. No scleral icterus. No conjunctival pallor. Normocephalic, atraumatic. No pharyngeal erythema. No thyromegaly. CARDIOVASCULAR: S1 and S2 present. No murmurs, rubs, or gallops. PULMONARY: Chest is clear to auscultation, no wheezing , no crackles. ABDOMEN: Soft, nontender, nondistended, normoactive bowel sounds. No palpable organomegaly. MUSCULOSKELETAL: No joint swelling or deformity. EXTREMITIES: No cyanosis, clubbing, or pedal edema. NEUROLOGICAL: Gross neurological examination did not reveal any focal deficits. SKIN: No rashes. no petechiae. - Labs CBC & Chem 7: 09/11/24 03:28 09/11/24 03:28 Labs: Abnormal Lab Results - Last 24 Hours (Table) 09/11/24 09/11/24 09/11/24 Range/Units 03:28 03:28 03:28 RBC 2.83 L (4.40-5.60) X 10*6/uL Hgb 8.3 L (13.0-17.0) g/dL Hct 26.8 L (39.6-50.0) % MCHC 31.0 L (32.0-37.0) g/dL RDW 15.3 H (11.5-14.5) % Lymphocytes # 0.62 L (0.90-5.00) X 10*3/uL PT 19.6 H (9.9-11.9) sec INR 1.83 H (0.93-1.11) sec BUN/Creatinine Ratio 33.25 H (12.00-20.00) Ratio POC Glucose (mg/dL) (70-110) mg/dL Calcium 8.3 L (8.7-10.3) mg/dL 09/11/24 Range/Units 11:18 RBC (4.40-5.60) X 10*6/uL Hgb (13.0-17.0) g/dL Hct (39.6-50.0) % MCHC (32.0-37.0) g/dL RDW (11.5-14.5) % Lymphocytes # (0.90-5.00) X 10*3/uL PT (9.9-11.9) sec INR (0.93-1.11) sec BUN/Creatinine Ratio (12.00-20.00) Ratio POC Glucose (mg/dL) 112 H (70-110) mg/dL Calcium (8.7-10.3) mg/dL Microbiology - Last 24 Hours (Table) 09/09/24 08:26 Gram Stain - Final Sputum Sputum Culture - Final 09/09/24 18:51 Blood Culture - Preliminary Blood Assessment and Plan Assessment: Bilateral basal pneumonia, community-acquired pneumonia Acute hypoxic respiratory failure Hemoptysis Small right pleural effusion COPD Paroxysmal A-fib on warfarin at home Hypertension Hyperlipidemia Diabetes mellitus Hypothyroidism History of GERD Coronary artery disease status post stent Plan: Continue with Zithromax and ceftriaxone Follow-up culture result Continue with warfarin and INR Resume home medication Monitor glucose Cardiology and pulmonary team consult Bronchodilators and oxygen therapy Labs and medication were reviewed.. Continue same treatment. Continue with symptomatic treatment. Resume home medication. Monitor labs and vitals. DVT and GI prophylaxis. Further recommendations as per clinical course of the patient DVT prophylaxis: Warfarin GI Prophylaxis: Ppi PT/OT: Pending Prognosis is guarded
[2024-09-12 04:59] LABS: INR 2.3 (<1.2); Prothrombin Time 22.7 sec (10.0-12.5)
[2024-09-12 06:43] LABS: Glucose,Whole Blood 102 mg/dL (70-110)
--- NOTE | 2024-09-12 07:17 | XR ---
EXAMINATION TYPE: XR chest 1V portable DATE OF EXAM: 09/12/2024 6:44 AM COMPARISON: Chest radiographs from 09/09/2024 TECHNIQUE: XR chest 1V portable Portable AP radiograph of the chest. CLINICAL INDICATION:Male, 73 years old with history of Pneumonia; FINDINGS: Lungs/Pleura: Similar bibasilar patchy airspace opacities with small bilateral pleural effusions. No pneumothorax. Pulmonary vascularity: Unremarkable. Heart/mediastinum: Cardiomediastinal silhouette is enlarged and stable. Left atrial appendage occlusi on devices present. Musculoskeletal: No acute osseous pathology. Midline sternotomy wires are noted and stable. Bilateral shoulder arthropathy. IMPRESSION: Similar bibasilar patchy airspace opacities concerning for pneumonia with small bilateral pleural eff usions. [facility], , 09/12/2024 7:14 AM
[2024-09-12 08:12] LABS: Basophils # (A) 0.03 X 10*3/uL (0.00-0.10); Basophils % (A) 0.4 %; Eosinophils # (A) 0.11 X 10*3/uL (0.04-0.35); Eosinophils % (A) 1.3 %; HCT 30.5 % (39.6-50.0); HGB 9.3 g/dL (13.0-17.0); Immature Grans, Automated 0.40 %; Lymphocytes # (A) 0.59 X 10*3/uL (0.90-5.00); Lymphocytes % (A) 7.1 %; MCH 29.0 pg (27.0-32.0); MCHC 30.5 g/dL (32.0-37.0); MCV 95.0 FL (80.0-97.0); Monocytes # (A) 0.84 X 10*3/uL (0.20-1.00); Monocytes % (A) 10.0 %; NRBC Per 100 WBC 0 X 10*3/uL (0.00-0.01); Neutrophils # (A) 6.76 X 10*3/uL (1.80-7.70); Neutrophils % (A) 80.8 %; Platelet Count 256 X 10*3/uL (140-440); RBC 3.21 X 10*6/uL (4.40-5.60); RDW 14.8 % (11.5-14.5); WBC 8.36 X 10*3/uL (4.50-10.00)
[2024-09-12 08:18] LABS: Anion Gap 12.00 mmol/L (4.00-12.00); BUN/Creat Ratio 27.11 Ratio (12.00-20.00); Blood Urea Nitrogen 24.4 mg/dL (9.0-27.0); Calcium 8.7 mg/dL (8.7-10.3); Carbon Dioxide 31.0 mmol/L (21.6-31.8); Chloride 97 mmol/L (96-109); Glucose 84 mg/dL (70-110); Potassium 4.0 mmol/L (3.5-5.5); Sodium 140 mmol/L (135-145)
--- NOTE | 2024-09-12 09:53 | FL ---
EXAMINATION TYPE: FL barium swallow w video DATE OF EXAM: 09/12/2024 MODIFIED SWALLOW / DEGLUTITION STUDY CLINICAL HISTORY: Dysphagia. History of throat abscess. Rule out aspiration. TECHNIQUE: Deglutition study is performed utilizing thin liquid barium, honey and nectar thick liqui d barium, barium thick pudding, and barium coated cracker. 1 minute 59 seconds of fluoro time and 1 images obtained. Total dose area product (DAP) in uGy*m?, mGy*cm? (or similar): 252.05 COMPARISON: None. FINDINGS: There is loss of normal cervical curvature noted. There is at least moderate degenerative c hanges C5-C6 level. The oral and pharyngeal phases show satisfactory initiation but diminished epiglo ttic inversion. Adequate mastication is seen with solid modalities tested. There is single episode o f penetration with honey thick barium that causes cough reflex which clears. Moderate to severe phary ngeal residue was appreciated. IMPRESSION: Poor pharyngeal phase. Significant residuals. No aspiration seen. Please refer to speech therapist notes for further details if necessary. [facility], , 09/12/2024 9:51 AM
--- NOTE | 2024-09-12 11:31 | P.PN ---
Subjective Progress Note Date: 09/12/24 Patient is a 73-year-old male with past medical history significant for coronary artery disease with previous three-vessel CABG and subsequent PCI/stents, diabetes mellitus, hypertension, hyperlipidemia, hypothyroidism, atrial fibrillation anticoagulated on Coumadin. Additionally, reports history of throat abscess and prolonged stay on the mechanical ventilator with tracheostomy and PEG tube at [facility]. These were reversed approximately 1 year ago. Endorses ongoing issues with dysphagia and aspiration. Brought into the emergency department late last night by EMS. Workup including chest x-ray showing bibasilar dense consolidations right greater than left with basilar pleural effusions. Prior sternotomy wires noted. Labs including a CBC with a WBC count of 7.97, hemoglobin 10.7 g/dL, platelets 277. CMP: Sodium 139, potassium 3.8, chloride 96, serum bicarb 32, BUN 36, creatinine 0.68, glucose 121. Lactic 1.4. Troponin 0.026. NT proBNP 2320. Viral 4 Plex negative for influenza A/B, RSV, COVID. Patient currently being evaluated in the emergency department. He is on 6 L nasal cannula. Resting fairly comfortably in bed. Able to carry out full conversation. He states that his difficulty in breathing started after an episode of vomiting. He feels he may have aspirated. Subsequently, coughing and small amounts of hemoptysis mixed with sputum. Denies any fevers or chills while at home. Did have a mild temperature of 99.9 F on arrival. Denies any further episodes of nausea or vomiting. Denies any hematemesis. Denies any abdominal pain. States his last normal bowel movement was yesterday. Although, reports ongoing issues with constipation. Denies any diarrhea, melena, hematochezia. Denies any chest pain. Denies any lower extremity swelling. No prior echocardiogram available for review. He is empirically covered on antibiotics. The patient is seen today September 10, 2024 in follow-up in the emergency department. He is currently sitting up in a stretcher. Awake and alert in no acute distress. Breathing a bit easier today compared to yesterday. Maintaining O2 saturations in the 90s on 4 L/min per nasal cannula. No IV fluids. Follow-up chest x-ray revealed stable exam with small right pleural effusion and bibasilar airspace opacities. He remains on ceftriaxone and azithromycin. Sputum culture pending. White count 6.2. Hemoglobin 9.9. Platelets 250. INR 1.4. Sodium 138. Potassium 4.2. Bicarb 30. BUN 24. Creatinine 0.8. Glucose 141. He is continued on DuoNeb inhalations and Singulair. Remains on oral diuretics. Anticoagulated with warfarin. The patient is seen today September 11, 2024 in follow-up on the regular medical floor. He is currently sitting up at the bedside. Awake and alert in no acute distress. Maintaining O2 saturations in the 90s on 4 L/min per nasal cannula. No IV fluids. He continues with a productive cough of yellowish sputum with some trace of blood. Improving. Sputum culture revealed no growth. Blood culture revealed no growth. White count 5.2. Hemoglobin 8.3. Platelets 216. INR 1.83. Sodium 140. Potassium 3.9. Bicarb 30. BUN 27. Creatinine 0.8. Glucose 71. He remains on ceftriaxone. Completed azithromycin. Continued on DuoNeb and elations and Singulair. Robitussin for his cough. Remains on oral diuretics. Anticoagulated with warfarin. The patient is seen today September 12, 2024 in follow-up on the regular medical floor. He is awake and alert in no acute distress. Denied any worsening shortness of breath, cough or congestion. Maintaining O2 saturations up to 100% on 4 L nasal cannula. Has been afebrile. Hemodynamically stable. Chest x-ray reveals similar bibasilar patchy airspace opacities. Small bilateral pleural effusions. He did pass his barium swallow today. Speech therapy recommending regular diet with thin liquids. White count 8.3. Hemoglobin 9.3. Platelets 256. INR 2.3. Sodium 140. Potassium 4.0. Bicarb 31. BUN 24. Creatinine 0.9. Glucose 84. He remains on ceftriaxone. Continued on bronchodilators. Anticoagulated with warfarin. Objective - Vital Signs Vital signs: Vital Signs Temp 97.9 F 09/12/24 01:15 Pulse 80 09/12/24 01:15 Resp 18 09/12/24 01:15 BP 135/83 09/12/24 01:15 Pulse Ox 100 09/12/24 01:15 FiO2 Intake & Output 09/11/24 09/12/24 09/12/24 18:59 06:59 18:59 Output Total 100 Balance -100 Output: Urine 100 Other: Voiding Method Toilet Toilet Urinal Urinal # Voids 1 2 - Exam GENERAL EXAM: Alert, very pleasant 73-year-old male, on 4 L nasal cannula, comfortable in no apparent distress. HEAD: Normocephalic. EYES: Normal reaction of pupils, equal size. NOSE: Clear with pink turbinates. THROAT: No erythema or exudates. NECK: No masses, no JVD. CHEST: No chest wall deformity. LUNGS: Equal air entry with bilateral scattered rhonchi. CVS: S1 and S2 normal with no audible murmur, regular rhythm. ABDOMEN: No hepatosplenomegaly, normal bowel sounds, no guarding or rigidity. SPINE: No scoliosis or deformity SKIN: No rashes CENTRAL NERVOUS SYSTEM: No focal deficits, tone is normal in all 4 extremities. EXTREMITIES: There is no peripheral edema. No clubbing, no cyanosis. Peripheral pulses are intact. - Labs CBC & Chem 7: 09/12/24 04:04 09/12/24 04:04 Labs: Abnormal Lab Results - Last 24 Hours (Table) 09/11/24 09/11/24 09/12/24 Range/Units 03:28 20:23 04:04 RBC (4.40-5.60) X 10*6/uL Hgb (13.0-17.0) g/dL Hct (39.6-50.0) % MCHC (32.0-37.0) g/dL RDW (11.5-14.5) % Lymphocytes # (0.90-5.00) X 10*3/uL PT 19.6 H 22.7 H (9.9-11.9) sec INR 1.83 H 2.3 H (0.93-1.11) sec BUN/Creatinine Ratio (12.00-20.00) Ratio POC Glucose (mg/dL) 144 H (70-110) mg/dL 09/12/24 09/12/24 Range/Units 04:04 04:04 RBC 3.21 L (4.40-5.60) X 10*6/uL Hgb 9.3 L (13.0-17.0) g/dL Hct 30.5 L (39.6-50.0) % MCHC 30.5 L (32.0-37.0) g/dL RDW 14.8 H (11.5-14.5) % Lymphocytes # 0.59 L (0.90-5.00) X 10*3/uL PT (9.9-11.9) sec INR (0.93-1.11) sec BUN/Creatinine Ratio 27.11 H (12.00-20.00) Ratio POC Glucose (mg/dL) (70-110) mg/dL Microbiology - Last 24 Hours (Table) 09/09/24 18:51 Blood Culture - Preliminary Blood 09/09/24 08:26 Gram Stain - Final Sputum Sputum Culture - Final Assessment and Plan Assessment: Suspect bilateral aspiration pneumonia Acute hypoxemic respiratory failure, currently on 4 L/min nasal cannula, secondary to above History of throat abscess History of tracheostomy and PEG tube, with reversal approximately 1 year ago Chronic ongoing dysphagia History of coronary artery disease with previous three-vessel CABG and subsequent PCI/stents Hypertension History of hyperlipidemia History of diabetes mellitus type 2 History of hypothyroidism History of paroxysmal atrial fibrillation, chronically anticoagulated on Coumadin Plan: The patient was seen and evaluated Chest x-ray, labs and medications reviewed Room swallow reviewed Speech therapist notes reviewed Sputum culture revealed no growth Cleared for discharge Complete a course of antibiotics Evaluate for possible home oxygen Continue his home pulmonary medications Anticoagulated with warfarin Follow-up in our office in 1 week I have personally seen and examined the patient, performed the documentation and the assessment and plan as written. Number of minutes spent on the visit: 10 Dictation was produced using [email or web address] dictation software. Please excuse any grammatical, word or spelling errors.
[2024-09-12] MEDS: DOCUSATE 100 MG CAP PO SCH (11:40)
[2024-09-12 11:41] LABS: Glucose,Whole Blood 121 mg/dL (70-110)
[2024-09-12 11:44] VITALS: BP 144/78; PULSE 85; RESP 17; TEMP 98.1
[2024-09-12] MEDS: BENZONATATE 100 MG CAP PO PRN (14:54)
[2024-09-12] MEDS ORDERED: WARFARIN 7.5 MG TAB PO ONE (18:00)
--- NOTE | 2024-09-12 23:12 | P.DS ---
Providers Date of admission: 09/08/24 22:07 Attending physician: Sophia Mcrae Consults: 09/08/24 22:07 Consult Physician Routine Consulting Provider: Mallory Coleman Consult Reason/Comments: copd Do you want consulting provider notified?: Yes 09/08/24 22:08 Consult Physician Routine Consulting Provider: Dariana Hernandez Consult Reason/Comments: cp Do you want consulting provider notified?: Yes Primary care physician: Rl Ramirez MD Hospital Course: Diagnoses: Bilateral basal pneumonia, community-acquired pneumonia Acute hypoxic respiratory failure Hemoptysis Small right pleural effusion COPD Paroxysmal A-fib on warfarin at home Hypertension Hyperlipidemia Diabetes mellitus Hypothyroidism History of GERD Coronary artery disease status post stent Hospital course: This is a pleasant 73 years old male from home with past medical history of multiple medical problems as below IWith past medical history of multiple medical problems who was transferred from [facility] for shortness of breath and coughing up blood. Patient evaluated by director of research and development and dish room worker and found to have acute COPD exacerbation, but mainly pneumonia and acute hypoxic respiratory failure, he was treated with ceftriaxone and Zithromax and his symptoms improved including dyspnea no chest pain and the hemoptysis stopped. Patient talks freely with no difficulty. Denies any other new complaints. Patient was cleared for discharge by both cardiology and pulmonary service. Also he is on Coumadin for his A-fib, his INR therapeutic upon discharge, he confirms to me he has Coumadin prescription at home he does not need anymore. He also was directed to monitor his INR as an outpatient in 2 to 3 days and he agrees. Patient qualified for home oxygen which was ordered prior to discharge. Proble ms and management plan were discussed with the patient and he verbalized understanding and acceptance Patient was found stable and can be discharged home in guarded prognosis however he needs follow-up as an outpatient. Patient was instructed to follow up with PCP within one week and patient agrees Patient was instructed to follow-up with dish room worker and director of research and development as per discharge instructions and he agrees Physical exam Gen: patient is a AAOx3, no distress CVS: S1-S2, RRR, no murmur Lungs: B/L CTA, no wheezing Abdomen: soft, no distention, no tenderness, positive bowel sounds Extremity: no leg edema or induration Time spent more than 35 minutes Patient Condition at Discharge: Serious Plan - Discharge Summary Discharge Rx Participant: No New Discharge Prescriptions: New bisacodyL [Dulcolax] 10 mg RECTAL DAILY PRN #5 suppositor PRN Reason: Constipation Benzonatate [Tessalon Perles] 200 mg PO TID PRN 5 Days #15 cap PRN Reason: Cough cefuroxime axetiL [Ceftin] 500 mg PO BID 7 Days #14 tab Continue Ipratropium-Albuterol Nebulize [Duoneb 0.5 mg-3 mg/3 ml Soln] 3 ml INHALATION RT-BID Pantoprazole [Protonix] 40 mg PO DAILY Albuterol Sulfate [Albuterol Sulfate Hfa] 2 puff INHALATION RT-Q4H PRN PRN Reason: Shortness Of Breath Potassium Chloride ER [K-Dur 10] 10 meq PO DAILY Multivitamins, Thera [Multivitamin (formulary)] 1 tab PO DAILY Levothyroxine Sodium [Synthroid] 25 mcg PO AC-BRKFST Metoprolol Succinate (ER) [Toprol XL] 25 mg PO HS Melatonin 6 mg PO HS Meclizine [Antivert] 25 mg PO BID PRN PRN Reason: Vertigo Montelukast [Singulair] 10 mg PO HS Cholecalciferol (Vitamin D3) [Vitamin D3 (50 Mcg = 2000 Iu)] 100 mcg PO DAILY Furosemide [Lasix] 20 mg PO DAILY Ferrous Gluconate 324 mg PO BID metFORMIN HCL [Glucophage] 1,000 mg PO BID glipiZIDE XL [Glucotrol XL] 5 mg PO DAILY Warfarin [Coumadin] 7.5 mg PO HS Clopidogrel [Plavix] 75 mg PO DAILY Isosorbide Mononitrate ER [Imdur] 30 mg PO DAILY Atorvastatin [Lipitor] 40 mg PO HS Changed Magnesium Oxide [Mag-Ox] 400 mg PO TID 30 Days #30 Discharge Medication List Albuterol Sulfate [Albuterol Sulfate Hfa] 2 puff INHALATION RT-Q4H PRN 09/09/24 [History] Atorvastatin [Lipitor] 40 mg PO HS 09/09/24 [History] Cholecalciferol (Vitamin D3) [Vitamin D3 (50 Mcg = 2000 Iu)] 100 mcg PO DAILY 09/09/24 [History] Clopidogrel [Plavix] 75 mg PO DAILY 09/09/24 [History] Ferrous Gluconate 324 mg PO BID 09/09/24 [History] Furosemide [Lasix] 20 mg PO DAILY 09/09/24 [History] Ipratropium-Albuterol Nebulize [Duoneb 0.5 mg-3 mg/3 ml Soln] 3 ml INHALATION RT-BID 09/09/24 [History] Isosorbide Mononitrate ER [Imdur] 30 mg PO DAILY 09/09/24 [History] Levothyroxine Sodium [Synthroid] 25 mcg PO AC-BRKFST 09/09/24 [History] Meclizine [Antivert] 25 mg PO BID PRN 09/09/24 [History] Melatonin 6 mg PO HS 09/09/24 [History] Metoprolol Succinate (ER) [Toprol XL] 25 mg PO HS 09/09/24 [History] Montelukast [Singulair] 10 mg PO HS 09/09/24 [History] Multivitamins, Thera [Multivitamin (formulary)] 1 tab PO DAILY 09/09/24 [History] Pantoprazole [Protonix] 40 mg PO DAILY 09/09/24 [History] Potassium Chloride ER [K-Dur 10] 10 meq PO DAILY 09/09/24 [History] Warfarin [Coumadin] 7.5 mg PO HS 09/09/24 [History] glipiZIDE XL [Glucotrol XL] 5 mg PO DAILY 09/09/24 [History] metFORMIN HCL [Glucophage] 1,000 mg PO BID 09/09/24 [History] Benzonatate [Tessalon Perles] 200 mg PO TID PRN 5 Days #15 cap 09/12/24 [Rx] Magnesium Oxide [Mag-Ox] 400 mg PO TID 30 Days #30 09/12/24 [Rx] bisacodyL [Dulcolax] 10 mg RECTAL DAILY PRN #5 suppositor 09/12/24 [Rx] cefuroxime axetiL [Ceftin] 500 mg PO BID 7 Days #14 tab 09/12/24 [Rx] Follow up Appointment(s)/Referral(s): Mallory Coleman MD [STAFF PHYSICIAN] - 1 Week Raudel Raines MD [STAFF PHYSICIAN] - 1 Week [facility], [NON-STAFF] - 1 Week (agency will call 24-48 hours after d/c to make an appointment) Rl Ramirez MD [Primary Care Provider] - 1-2 days Activity/Diet/Wound Care/Special Instructions: Heart healthy diet Activity is restricted/limited till you see your doctor We recommend to check your INR in 2 to 3 days. Your goal INR is 2.0-3.0 Discharge Disposition: HOME WITH HOME HEALTH SERVICES
== END 2024-09-12 16:03 | disposition home health service (06) | DRG 193 ==
LOC: EC 20:42 → 5NMEDONC 22:07 → 4SSUR 09-09 11:37
PROVIDERS: ADMIT Hospitalist; ATTEND Hospitalist
DX: J18.9 Pneumonia, unspecified organism (principal); J96.01 Acute respiratory failure with hypoxia; R04.2 Hemoptysis; R13.10 Dysphagia, unspecified; J44.1 Chronic obstructive pulmonary disease with (acute) exacerbation; E11.9 Type 2 diabetes mellitus without complications; E03.9 Hypothyroidism, unspecified; I10 Essential (primary) hypertension; J44.0 Chronic obstructive pulmonary disease with (acute) lower respiratory infection; I48.0 Paroxysmal atrial fibrillation; I25.10 Atherosclerotic heart disease of native coronary artery without angina pectoris; E78.5 Hyperlipidemia, unspecified; K59.00 Constipation, unspecified; K21.9 Gastro-esophageal reflux disease without esophagitis; Z79.84 Long term (current) use of oral hypoglycemic drugs; Z79.01 Long term (current) use of anticoagulants; Z79.899 Other long term (current) drug therapy; Z79.890 Hormone replacement therapy; Z79.02 Long term (current) use of antithrombotics/antiplatelets; Z95.5 Presence of coronary angioplasty implant and graft; Z95.1 Presence of aortocoronary bypass graft; Z87.891 Personal history of nicotine dependence
CPT/HCPCS: 36415; 71045; 71046; 74230; 80048; 80053; 83605; 83735; 83880; 84484; 85025; 85610; 85730; 87040; 87070; 87205; 87449; 87636; 93005; 94640; 94760; 96365; 96366; 96367; 96368; 96375; 96376; 99285